=== PATIENT | female | born 1965 | race Caucasian/White ===

== ENCOUNTER → 2016-06-02 | Outpatient (REF) | payer OTHER ==
[~2016-06-02] MED LIST: /ROPI25TA PO; ACET250T2 PO; COLA50CA3 PO; DOCU10ELUD PO; FOLI1TAB86 PO; KEPP1000 PO; LIPI10TA PO; NORT25CA2 PO; NORT50CA PO; TOPA100T PO; TOPA200T PO; VENL50TA2 PO; VIMP200T PO; VITA200016 PO; VITA500T53 IM
[2016-06-02 13:51] LABS: PERCENT SATURATION 27.2 % (13.2-37.4)
== END ==
LOC: M LAB REF 12:42
PROVIDERS: ATTEND Internal Medicine Medical Oncology
DX: D50.9 Iron deficiency anemia, unspecified (principal)

== ENCOUNTER → 2016-07-28 | Outpatient (REF) | payer OTHER | LOC: M LAB REF 12:18 | PROVIDERS: ATTEND Internal Medicine Medical Oncology | DX: D50.9 Iron deficiency anemia, unspecified (principal) ==

== ENCOUNTER → 2017-10-07 | Outpatient (REF) | payer OTHER ==
[2017-10-07 15:30] LABS: FERRITIN 594 NG/ML (8-252); IRON (FE) 28 UG/DL (50-170); PERCENT SATURATION 11.5 % (13.2-45.0); TOTAL IRON BINDING CAPACITY 243 UG/DL (250-450)
== END ==
LOC: M LAB REF 13:30
DX: D50.9 Iron deficiency anemia, unspecified (principal)

== ENCOUNTER → 2017-11-04 | Outpatient (REF) | payer OTHER ==
[2017-11-04 18:26] LABS: POTASSIUM RANDOM URINE 12.1 MEQ/L
== END ==
LOC: M LAB REF 17:26
DX: E87.6 Hypokalemia (principal)

== ENCOUNTER → 2017-11-22 | Outpatient (REF) | payer OTHER ==
[2017-11-22 19:53] LABS: ALBUMIN 3.4 GM/DL (3.2-5.2); ANION GAP 5 MEQ/L (8-16); BLOOD UREA NITROGEN 19 MG/DL (7-18); CALCIUM LEVEL 8.8 MG/DL (8.5-10.1); CARBON DIOXIDE LEVEL 27 MEQ/L (21-32); CHLORIDE LEVEL 113 MEQ/L (98-107); CREATININE FOR GFR 1.02 MG/DL (0.55-1.30); GLOMERULAR FILTRATION RATE > 60.0 (>51); GLUCOSE, FASTING 85 MG/DL (70-100); PHOSPHORUS LEVEL 4.8 MG/DL (2.5-4.9); POTASSIUM SERUM 4.6 MEQ/L (3.5-5.1); SODIUM LEVEL 145 MEQ/L (136-145)
== END ==
LOC: M LAB REF 19:01
DX: R31.9 Hematuria, unspecified (principal)

== ENCOUNTER → 2018-01-04 | Outpatient (REF) | payer OTHER ==
[2018-01-04 14:39] LABS: FERRITIN 538 NG/ML (8-252); IRON (FE) 60 UG/DL (50-170); PERCENT SATURATION 22.6 % (13.2-45.0); TOTAL IRON BINDING CAPACITY 265 UG/DL (250-450)
== END ==
LOC: M LAB REF 14:00
DX: D50.9 Iron deficiency anemia, unspecified (principal)

== ENCOUNTER → 2018-01-20 | Outpatient (CLI) | payer OTHER ==
[~2018-01-20] MED LIST changes: -/ROPI25TA PO; -ACET250T2 PO; -COLA50CA3 PO; -DOCU10ELUD PO; -FOLI1TAB86 PO; +ISOVUE-370 76% 100ML VIAL (Q9967) As Ordered; -KEPP1000 PO; -LIPI10TA PO; -NORT25CA2 PO; -NORT50CA PO; -TOPA100T PO; -TOPA200T PO; -VENL50TA2 PO; -VIMP200T PO; -VITA200016 PO; -VITA500T53 IM
== END ==
LOC: M RAD 10:47
DX: N28.1 Cyst of kidney, acquired (principal)
CPT/HCPCS: Q9967

== ENCOUNTER → 2018-01-27 | Outpatient (REF) | payer OTHER ==
[2018-02-01 08:06] LABS: ALDOS/RENIN RATIO 4.6 (0.0-30.0); ALDOSTERONE 6.3 ng/dL (0.0-30.0); RENIN ACTIVITY 1.367 ng/mL/hr (0.167-5.380)
== END ==
LOC: M LAB REF 13:02
DX: E87.6 Hypokalemia (principal)
CPT/HCPCS: 84244

== ENCOUNTER → 2018-12-30 | Outpatient (REF) | payer OTHER ==
[~2018-12-30] MED LIST changes: +ACET250T2 PO; +ARMO200T3 PO; +ATOR40TA75 PO; +COLA50CA3 PO; +DOCU5LIQ PO; +FOLI1TAB11 PO; +FOLI1TAB86 PO; -ISOVUE-370 76% 100ML VIAL (Q9967) As Ordered; +KEPP1000 PO; +KEPP1TAB PO; +LEVOTAB10 PO; +LIPI10TA PO; +NORT25CA2 PO; +NORT50CA PO; +POTA10CA32 PO; +RANI-280 PO; +REQU1TAB14 PO; +SERT-138 PO; +TOPA100T PO; +TOPA200T PO; +TOPA200T7 PO; +TOPA50TA8 PO; +VENL50TA2 PO; +VIMP150T PO; +VIMP200T PO; +VITA-113 SL; +VITA200016 PO; +VITA50005 PO; +VITA500T53 IM; +ZOLO100T PO
== END ==
LOC: M LAB LCGH 15:22
PROVIDERS: ATTEND Physician Assistant
DX: D48.5 Neoplasm of uncertain behavior of skin (principal)

== ENCOUNTER 2019-04-15 22:05 | Inpatient (IN) | payer MEDICAID, OTHER ==
[~2019-04-15] VITALS: Ht 154.9 cm; Wt 72.7 kg
[~2019-04-15 22:05] MED LIST changes: +BACL10TA2 PO; +HYDR-3910 PO; +MAGN400T2 PO; +PRAM0.754 PO; +PROZ10CA7 PO; +TOPI200T7 PO; +[UNRECOGNIZED DRUG - CODE] PO
[2019-04-15] MEDS ORDERED: MOM 30ML SUSPENSION UDC PO PRN (23:30)
[2019-04-15] MEDS ORDERED: MAALOX 30 ML SUSP *UDC PO PRN (23:30)
[2019-04-15] MEDS ORDERED: LORazepam 2 MG TAB PO PRN (23:30)
[2019-04-16] MEDS ORDERED: HYDR-3363 PO (00:25)
[2019-04-16] MEDS ORDERED: B-12100011 SL (00:25)
[2019-04-16] MEDS ORDERED: PATIENT COMMENTS (00:28)
[2019-04-16 01:27] VITALS: BP 122/74
[2019-04-16] MEDS: THIAMINE 100 MG TAB PO SCH ×3 (01:28→21:46)
[2019-04-16] MEDS: ACETAMINOPHEN TAB 650MG DOSE (2X325MG) PO PRN ×2 (01:34→08:05)
[2019-04-16 06:09] VITALS: BP 102/54
[2019-04-16] MEDS: POTASSIUM CHLORIDE 10 MEQ SR TABLET PO SCH ×2 (08:04→20:46)
[2019-04-16] MEDS: PRAMIPEXOLE 0.25 MG TAB PO SCH ×2 (08:04→20:50)
[2019-04-16] MEDS: LACOSAMIDE 50 MG TAB (VIMPAT) PO SCH ×2 (08:05→20:49)
[2019-04-16] MEDS: levETIRAcetam 250MG TABLET (KEPPRA) PO SCH ×2 (08:05→20:51)
[2019-04-16] MEDS: FOLIC ACID 1 MG TAB PO SCH (08:05)
[2019-04-16] MEDS: BACLOFEN 10 MG TAB PO SCH (08:05)
[2019-04-16] MEDS: MULTIVITAMINS/MINERALS THERAP 1 TAB PO SCH (08:05)
[2019-04-16] MEDS: TOPIRAMATE (TopAMAX) 100 MG TAB PO SCH ×2 (08:06→20:41)
[2019-04-16] MEDS ORDERED: FOLIC ACID 1 MG TAB PO SCH (09:00)
[2019-04-16 12:12] VITALS: BP 107/65
[2019-04-16] MEDS ORDERED: ACETAMINOPHEN TAB 650MG DOSE (2X325MG) PO PRN (13:00)
--- NOTE | 2019-04-16 13:36 | REP ---
Clinical: fall with right shoulder pain . Technique: Internal rotation, external rotation, and Y view right shoulder . Findings: No acute fracture or dislocation. The acromioclavicular and glenohumeral joints are intact. No periarticular calcifications or degenerative changes are appreciated. Sub acromial space is normal. Surrounding soft tissues are unremarkable. Impression: Normal right shoulder radiographs. Electronically Signed by Logan Saleh MD 04/16/2019 01:27 P
--- NOTE | 2019-04-16 13:37 | REP ---
Clinical: Fall. Pain. Technique: Neutral and frog lateral views of the right hip. Findings: No acute fracture or dislocation. Skeletal structures, joint spaces, and surrounding soft tissues appear normal. Impression: No acute fracture or dislocation. Electronically Signed by Logan Saleh MD 04/16/2019 01:28 P
[2019-04-16] MEDS: CEPHALEXIN 500 MG CAP PO SCH ×2 (13:49→20:47)
[2019-04-16] MEDS: ACETAMINOPHEN 500 MG TAB PO PRN ×2 (13:50→20:54)
[2019-04-16 15:43] VITALS: BP 100/56
--- NOTE | 2019-04-16 17:30 | MHHPEPDOC ---
General Date Of Admission: Apr 15, 2019 Legal Status: 9.39 Chief Complaint " I stopped taking al my medications the right way, I was taking them every other day and that included my epilepsy medicine" History of Present Illness HISTORY OF THE PRESENT ILLNESS: Patient is a 53 -year-old , female, who, as per ED report: "Reason for Referral Pt transferred to [facility] ED for MHE on , pt expressed SI recently, has admittedly been depressed and abusing ETOH. Chief Complaint Pt is calm/flat/quiet, admits to making passive suicidal statement to family earlier today, had stated that she "should have finished it" years ago when she attempted suicide by overdose. Pt has epilepsy and narcolepsy as well as other medical issues, states she had a seizure yesterday and went to [facility] ED for tx, was d/c'd home and began drinking again, also admits to partial compliance with medications, states she takes "all of my medications every other day". Pt state she does this because "I don't like the way they make me feel". Pt lives alone and has her sister nearby for support, pt states she had another seizure earlier todayand tried to call eflow's but could not compete the call, they contacted pt.'s sister who responded to pt.'s home and then called 911. Per family, pill bottles were found scattered around the residence and pt appeared to be post-ictal from seizure. Pt is A&0x3, initially denies SI/HI, admits she has been feeling depressed, has missed 3 straight appointments at [facility]. PT admits to making suicidal statement to family however denies any plan/intent, reports one prior attempt by Tylenol ДМИТРИЙ in 2011, was admitted to ICU and then to [facility]. Pt reports daily ETOH, denies drug use, denies HI/AH/VH, admits to feeling depressed over medical issues and her son "not wanting to be in my life". Pt adds that she "did not have sex for 17 years" and then recently started "inviting men into my home", states "that's not like me", pt.'s family also expressed their concerns for pt.'s safety due to her ongoing ETOH, medical concerns/non-compliance as well as recent SI. PSA asked pt if she feels that she needs admission to hospital and after long pause stated "I don't know". Psychiatric Review of Systems Depression (2 or more weeks): depressed mood, insomnia/hypersomnia, difficulty concentrating, appetite changes, psychomotor changes (psychomotor retardation), suicidal thoughts Eladia (4 or more days of): denies Psychosis: denies PTSD: denies Anxiety: denies Anxiety/ 6 months or more of: difficulty concentrating, irritability, sleep disturbance Past Psychiatric History Previous Psychiatric Diagnosis: Depression, anxiety and panic attacks Previous Psychiatric Admissions: Admitted to [facility] in 2011 Suicide Attempts: Tylenol OD in 2012, admitted to [facility] ICU and tehn, tranferred to [facility] Psychiatric Follow-up: [facility] ( they closed her case because she didn't show up. she says it is because the Medicaid transportation didn't show up and she couldn't make it to her appts.) Psychiatric medications: Prozac, Trazodone. Past Medical History Medical Problems Epilepsy and narcolepsy. takes Keppra and Topamax for epilepsy and Modafinil for narcolepsy Head Injury: Yes (When she had swizures but she never had CT scnas done) Seizures: Yes Hospitalizations: Yes (She had 3 surgeries "intestinal surgeries in [place]". she tells me that her intestines were twisted.) Surgeries: Yes (Please read above) Family Medical/Psychiatric HX Medical Problems heart disease, cancer, diabetes, stroke Psychiatric Disorders: Yes (her mother, had a "nervous breakdown when she was in her 30's". She's passed now. ) Addiction: No Suicide Attemps/Completions: No Addiction History nicotine (1/2 pack/day), alcohol (4-5 glasses of wine daily) Social History Childhood: "We had a good childhood, I had 2 sisters and you know, it was normal". Her mother was hairdresser and worked at home. her father came back home at night from work. They had a close relationship. She says elementary school was OK and in she was overweight and she only had one friend in school, some of the boys would pick on her, it was hard for her to make friends being overweight. Abuse/Trauma: She was picked on while in for being overweight but she didn't think of it like that Current Living Situation: Lives by herself. Education: Finished Employment: She has not worked since age 37. She is on SSI. Social Support: her 2 sisters, years ago she had to move in with her parents 15 years ago because she was having about 15 seizures/day. Her parents are . She says her sisters take her out once/month because they are busy with their lives. Legal: Denies Marital: , she has a 30 year old son. she doesn't see him very often. she says he sister thinks that she was terrible to him but she says she doesn't think " I was that rotten to him" Mental Status Examination General Appearance: well groomed, ds/not appear stated age (appears to be older), hospital scubs/clothing Build: thin Demeanor: average Eye Contact: average Activity: slowed, anxious Behavior: cooperative Speech: clear, spontaneous, slow, low in volume Mood: depressed, anxious Affect: constricted, appropriate, congruent, anxious Thought Process: logical/linear, depressed, slow Thought Content (Delusions): denies SI, HI, AVH Thought Content (Other): none reported Thought Content (Aggressive): none reported Perception (Hallucinations): none reported Perception (Other): none reported Cognition (Impairment of): none reported Cognition(Intelligence Est.): average Oriented: Awake, Alert, Oriented times three Insight: fair Judgment: Poor Psychosis: Denies Diagnoses 1. Unspecified depressive disorder 2. ETOH use disorder 3. R/O substance induced depression 4. Epilepsy 5. Narcolepsy A-FIB/CHADSVASC A-FIB History Current/History of A-Fib/PAF?: No Current PO Anticoag Therapy: No Age/Risk Factor Scoring CHADSVASC: CHADSVASC Response (Comments) Value Age Risk Factor Age < 65 years old 0 Gender Risk Factor Female 1 Hx of CHF No 0 Hx of HTN No 0 Hx of Stroke/TIA/or VTE No 0 Hx of Diabetes No 0 Hx of Vascular Disease No 0 Total 1 Treatment Treatment ordered: NONE Reason Anticoagulant not given: Not indicated/[id number] Assessment The patient seems to have some confabulation at times, her thought process is slow, sometimes she seems to have some thought blocking that could be secondary to her anti seizure medication ( Topamax and Keppra). This health technical writer elained that Keppra can be depressogenic for her to have a conversation with her Neurologist and assess the possibility of having her on another medication. Initial Treatment Plan 1. Patient was admitted on a [9.39] status. 2. Complete history was obtained. 3. With patients permission, family will be contacted and database will be expanded. 4. Patients medication regimen will be reviewed and changed accordingly. 5. Patient will be provided with protected environment. 6. Patient will be treated with individual, group, and milieu therapies. 7. Patient will receive supportive psych-education. 8. Discharge planning will commence immediately. 9. Outpatient follow-up treatment will be strongly recommended. 10. The initial treatment plan will focus initially on: * Depression. * Anxiety * Risk for suicide. * Substance abuse (nicotine and alcohol) ESTIMATED LENGTH OF STAY: 5-7 DAYS. TIME SPENT COUNSELING AND COORDINATING INITIAL CARE: 60 minutes. Vital Signs Vital Signs Date Time Temp Pulse Resp B/P (MAP) Pulse Ox O2 Delivery O2 Flow Rate FiO2 04/16/19 15:43 99.0 71 16 100/56 (71) 04/16/19 06:09 Room Air 04/16/19 00:23 94 Medications Scheduled Armodafinil (Armodafinil) 200 Mg Tab, 200 MG PO QAM, (Reported) Atorvastatin Calcium (Atorvastatin Calcium) 40 Mg Tab, 40 MG PO QPM, (Reported) Baclofen (Baclofen) 10 Mg Tablet, 10 MG PO DAILY, (Reported) Cyanocobalamin (Vitamin B-12) (Vitamin B-12) 1,000 Mcg Tab.subl, 1,000 MCG SL DAILY, (Reported) Ergocalciferol (Vitamin D2) (Vitamin D2) 50,000 Unit Cap, 50,000 UNIT PO QWEEK, (Reported) Wednesday Fluoxetine HCl (Prozac) 10 Mg Capsule, 20 MG PO QHS, (Reported) Folic Acid (Folic Acid) 1 Mg Tab, 1 MG PO QAM, (Reported) Hydroxyzine HCl (Hydroxyzine HCl) 25 Mg Tablet, 25 MG PO QHS, (Reported) MAY TAKE TWO Lacosamide (Vimpat) 200 Mg Tablet, 200 MG PO BID, (Reported) Levetiracetam (Keppra) 500 Mg Tab, 1,000 MG PO BID, (Reported) Levocetirizine Dihydrochloride (Levocetirizine Dihydrochloride) 5 Mg Tab, 5 MG PO QPM, (Reported) Magnesium Oxide (Magnesium Oxide) 400 Mg Tablet, 400 MG PO 3XW, (Reported) Yqudtbfe20/Folic AC/Nadh/Coq10 (Xyzbac Tablet) 1 Each Tablet, 1 TAB PO DAILY, (Reported) Potassium Chloride (Potassium Chloride) 10 Meq Cap, 20 MEQ PO BID, (Reported) Pramipexole Di-HCl (Pramipexole Dihydrochloride) 0.75 Mg Tablet, 0.75 MG PO BID, (Reported) Sertraline HCl (Sertraline HCl) 100 Mg Tab, 100 MG PO QPM, (Reported) Topiramate (Topiramate) 200 Mg Tablet, 200 MG PO BID, (Reported) Topiramate (Topamax) 50 Mg Tablet, 50 MG PO QHS, (Reported) TAKES WITH 200MG TABLET FOR TOTAL OF 250MG AT HS Miscellaneous Medications [Patient Comments] , (Reported) PATIENT STATES SHE TAKES HER MEDICATIONS EVERY OTHER DAY Allergies Coded Allergies: sumatriptan (Verified Allergy, Severe, 09/13/18) Quinolones (Verified Adverse Reaction, Severe, Seizure, 04/15/19) moxifloxacin (Verified Adverse Reaction, Severe, lowers seizure threshold, 04/15/19) SAJAN HENRY MD Apr 16, 2019 17:30
--- NOTE | 2019-04-16 18:57 | HPEPDOC ---
General Date of Admission Apr 15, 2019 at 23:24 Date of Service: Apr 16, 2019 Attending Physician: HUMBERTO BANDA MD Chief Complaint The patient is a 53-year-old female admitted with a reason for visit of Unspecified Depressive Disorder. Source: Patient Exam Limitations: No limitations Timing/Duration: Other Severity: Moderate Associated Symptoms: Other (Depressed mood. Pain in R shoulder and R hip after recent fall during seizure) History of Present Illness 53 yo W with a history of epilepsy and narcolepsy with a history intermittent medication compliance with occasional seizure, recent excessive alcohol use, depression, prior suicide attempt in 2011 with tylenol requiring ICU stay, familial strife and estranged from her son who was brought into the ED after expressing a desire to end her life to family. She was brought into an outside hospital where she had labs done with a +UA per nursing verbal report after I had already examined her, that she grew GNRs with pending speciation and sensitivities. When I met Ms. Francis she reported a recent traumatic fall during her last seizure that was few days ago and has R shoulder and R hip pain. She otherwise denied any fever, chills, chest pain, palpitations, headache, abdominal pain or diarrhea. Home Medications Scheduled Armodafinil (Armodafinil) 200 Mg Tab, 200 MG PO QAM, (Reported) Atorvastatin Calcium (Atorvastatin Calcium) 40 Mg Tab, 40 MG PO QPM, (Reported) Baclofen (Baclofen) 10 Mg Tablet, 10 MG PO DAILY, (Reported) Cyanocobalamin (Vitamin B-12) (Vitamin B-12) 1,000 Mcg Tab.subl, 1,000 MCG SL DAILY, (Reported) Ergocalciferol (Vitamin D2) (Vitamin D2) 50,000 Unit Cap, 50,000 UNIT PO QWEEK, (Reported) WEDNESDAY AM Fluoxetine HCl (Prozac) 10 Mg Capsule, 20 MG PO QHS, (Reported) Folic Acid (Folic Acid) 1 Mg Tab, 1 MG PO QAM, (Reported) Hydroxyzine HCl (Hydroxyzine HCl) 25 Mg Tablet, 25 MG PO QHS, (Reported) MAY TAKE TWO Lacosamide (Vimpat) 200 Mg Tablet, 200 MG PO BID, (Reported) Levetiracetam (Keppra) 500 Mg Tab, 1,000 MG PO BID, (Reported) Levocetirizine Dihydrochloride (Levocetirizine Dihydrochloride) 5 Mg Tab, 5 MG PO QPM, (Reported) Magnesium Oxide (Magnesium Oxide) 400 Mg Tablet, 400 MG PO 3XW, (Reported) Kwraqxoh74/Folic AC/Nadh/Coq10 (Xyzbac Tablet) 1 Each Tablet, 1 TAB PO DAILY, (Reported) Potassium Chloride (Potassium Chloride) 10 Meq Cap, 20 MEQ PO BID, (Reported) Pramipexole Di-HCl (Pramipexole Dihydrochloride) 0.75 Mg Tablet, 0.75 MG PO BID, (Reported) Sertraline HCl (Sertraline HCl) 100 Mg Tab, 100 MG PO QPM, (Reported) Topiramate (Topiramate) 200 Mg Tablet, 200 MG PO BID, (Reported) Topiramate (Topamax) 50 Mg Tablet, 50 MG PO QHS, (Reported) TAKES WITH 200MG TABLET FOR TOTAL OF 250MG AT HS Miscellaneous Medications [Patient Comments] , (Reported) PATIENT STATES SHE TAKES HER MEDICATIONS EVERY OTHER DAY Allergies Coded Allergies: sumatriptan (Verified Allergy, Severe, 09/13/18) Quinolones (Verified Adverse Reaction, Severe, Seizure, 04/15/19) moxifloxacin (Verified Adverse Reaction, Severe, lowers seizure threshold, 04/15/19) Past Medical History Medical History Epilepsy Narcolepsy Family History Significant Family History: No pertinent family hx Social History * Smoker: Denies Alcohol: heavy Drugs: denies Recent Travel/Sick Contacts: Denies: Recent travel, Recent sick contacts Psychosocial History: Decreased mood, Depression, Emotional problems Lives alone Has one son whom she is estranged to now and is devastated by the fallout such that she tries to call him without much luck and gets very depressed when she thinks about it and it precipitates her drinking and medication non-compliance A-FIB/CHADSVASC A-FIB History Current/History of A-Fib/PAF?: No Current PO Anticoag Therapy: No Age/Risk Factor Scoring CHADSVASC: CHADSVASC Response (Comments) Value Age Risk Factor Age < 65 years old 0 Gender Risk Factor Female 1 Hx of CHF No 0 Hx of HTN No 0 Hx of Stroke/TIA/or VTE No 0 Hx of Diabetes No 0 Hx of Vascular Disease No 0 Total 1 Treatment Treatment ordered: NONE Reason Anticoagulant not given: Not indicated/[id number] Review of Systems Constitutional: Denies: Chills, Fever, Night Sweats Eyes: Denies: Pain, Vision change ENT: Denies: Head Aches, Ear Pain, Dysphagia Skin: Denies: Rash, Lesions, Breakdown Pulmonary: Denies: Dyspnea, Cough Cardiovascular: Denies: Chest Pain, Palpitations, Orthopnea, Paroxysmal Noc. Dyspnea, Lt Headedness Gastrointestinal: Denies: Nausea, Vomiting, Abdominal Pain, Diarrhea Genitourinary: Denies: Dysuria, Frequency, Incontinence, Retention Hematologic: Denies: Bruising, Bleeding Excessively Endocrine: Denies: Polydipsia, Polyphagia, Polyuria, Heat Intolerance, Cold Intolerance, Other Endocrine Sx Musculoskeletal: Reports: Shoulder Pain (right sided), Leg Pain (right hip pain) Neurological: Denies: Weakness, Numbness, Change in speech, Confusion Psych: Reports: Depression, Thoughts of Self Harm Physical Examination General Exam: Positive: Alert, No Acute Distress Eye Exam: Positive: PERRLA, Conjunctiva & lids normal, EOMI; Negative: Sclera icteric ENT Exam: Positive: Atraumatic, Mucous membr. moist/pink, Pharynx Normal Neck Exam: Positive: Supple; Negative: JVD, thyromegaly Chest Exam: Positive: Clear to auscultation, Normal air movement Heart Exam: Positive: Rate Normal, Regular Rhythm, Normal S1, Normal S2; Negative: Murmurs, Rubs Abdomen Exam: Positive: Normal bowel sounds, Soft; Negative: Tenderness, Hepatospenomegaly Extremity Exam: Positive: Normal pulses; Negative: Clubbing, Cyanosis, Edema Skin Exam: Positive: Nl turgor and temperature; Negative: Breakdown, Lesion Neuro Exam: Positive: Normal Gait, Normal Speech, Strength at 5/5 X4 ext, Sensa tion Intact, Cranial Nerves 3-12 NL, Reflexes 2+ Psych Exam: Positive: Mood NL, Memory Intact, Oriented x 3 Other physical findings right hip and right shoulder tenderness to palpation, with full range of motion. Vital Signs Vital Signs Date Time Temp Pulse Resp B/P (MAP) Pulse Ox O2 Delivery O2 Flow Rate FiO2 04/16/19 15:43 99.0 71 16 100/56 (71) 04/16/19 06:09 Room Air 04/16/19 00:23 94 Assessment/Plan 53 yo woman with a history of narcolepsy and epilepsy with a history of medication non compliance, depression, recent alcohol use disorder and familial distress with her estranged son who was brought into the hospital for endorsing suicidal thoughts to family that brought her to the hospital. In addition to suicidal ideation and depression, she was found to have a GNR UTI and has MSK pain from her recent fall without fractures to her right hip and shoulder. I will empirically start her on keflex and will follow up on her speciation and sensitivities to optimize her antibiotics for the UTI, and will increase her tylenol from 650Q6H to 1gQ6H PRN for the shoulder and hip contusion pain. The rest of her plan is per the recommendation of the psychiatry team that have already started her pertinent medications. I will continue to follow he to follow up her urine culture sensitivities. Plan: UTI: starte kelfex 500 BID empirically for GNR UTI and follow up her speciation and sensitivities R hip and R shoulder pain: Obtained plain films that were negative for fractures. Increased tylenol to 1gQ6H PRN for contusion pain. Epilepsy: her medications were restored by psychiatry, agree with plan narcolepsy: Changed her provigil to QAM instead of QHS with pharmacy Chronic meds: have been resumed Psych: per the mental health team recommendations Plan / VTE VTE Prophylaxis Ordered?: No VTE Exclusion Mechanical Proph: Low Risk for VTE VTE Exclusion Pharmacological: At Low Risk for VTE HUMBERTO BANDA MD Apr 16, 2019 18:56
[2019-04-16] MEDS: TOPIRAMATE (TopAMAX) 25 MG TAB PO SCH (20:45)
[2019-04-16] MEDS: FLUoxetine 20 MG CAP PO SCH (20:47)
[2019-04-16] MEDS: ATORVASTATIN 20 MG TAB PO SCH (20:49)
[2019-04-16] MEDS: hydrOXYzine 25 MG TAB PO SCH (20:49)
[2019-04-16] MEDS: CETIRIZINE (ZyrTEC) 10 MG TAB PO SCH (20:49)
[2019-04-16] MEDS ORDERED: SERTRALINE 100 MG TAB PO SCH (21:00)
[2019-04-17] MEDS: traZODone 50 MG TAB PO PRN ×2 (02:13→20:15)
[2019-04-17] MEDS: ACETAMINOPHEN 500 MG TAB PO PRN ×3 (05:05→20:13)
[2019-04-17 06:31] VITALS: BP 110/68
[2019-04-17] MEDS: FOLIC ACID 1 MG TAB PO SCH (08:34)
[2019-04-17] MEDS: THIAMINE 100 MG TAB PO SCH ×2 (08:34→20:15)
[2019-04-17] MEDS: POTASSIUM CHLORIDE 10 MEQ SR TABLET PO SCH ×2 (08:34→20:15)
[2019-04-17] MEDS: MULTIVITAMINS/MINERALS THERAP 1 TAB PO SCH (08:34)
[2019-04-17] MEDS: PRAMIPEXOLE 0.25 MG TAB PO SCH ×2 (08:35→20:12)
[2019-04-17] MEDS: TOPIRAMATE (TopAMAX) 100 MG TAB PO SCH ×2 (08:35→20:16)
[2019-04-17] MEDS: MODAFINIL 100 MG TABLET PO SCH (08:35)
[2019-04-17] MEDS: BACLOFEN 10 MG TAB PO SCH (08:35)
[2019-04-17] MEDS: CEPHALEXIN 500 MG CAP PO SCH ×2 (08:35→20:15)
[2019-04-17] MEDS: levETIRAcetam 250MG TABLET (KEPPRA) PO SCH ×2 (08:35→20:13)
[2019-04-17] MEDS: LACOSAMIDE 50 MG TAB (VIMPAT) PO SCH ×2 (08:35→20:14)
[2019-04-17] MEDS ORDERED: MAGNESIUM OXIDE 400 MG TAB (MAG-OX) PO SCH (09:00)
[2019-04-17] MEDS ORDERED: VITAMIN D 50,000 UNITS CAPSULE (ERGOCALCIFEROL 1.25MG) PO SCH (09:00)
--- NOTE | 2019-04-17 10:43 | MHIPNPDOC ---
[facility] Progress Note Progress Note Inpatient Progress Note Alize Uribe MRN: N/A Date of : N/A Date of Service: 04/17/2019 History of Present Illness 53-year-old woman with a history of depression and reported alcohol problems, presents after reportedly making passive suicidal statements in the context of recently not taking her seizure medications. Interval History The patient is met with today. She reports she is not suicidal or homicidal. She has been restarted on her home medications. She reports that when asked about if she would like to stay longer, she is a bit ambivalent reporting that she has not been on her medications. The patient has been doing well per staff report amenable and friendly with no major behavioral problems. The patient reports that her initial depressed mood has begun to resolve. Review Of Systems The patient denies any side effects from her current medications and reports that her sleep and ability to attend her needs has improved. Psychotherapy None on this visit. Vital Signs Reviewed. Mental Status Examination General: Well dressed with good hygiene Speech: Spontaneous and fluid Thought processes: Linear and logical MSK: Smooth and coordinated gait, no signs of tremors or involuntary orofacial movements Thought content: Future orientated Abstract reasoning, and computation: Intact Description of associations: Intact Description of abnormal or psychotic thoughts: Denies any suicidal or homicidal ideation. Denies any auditory or visual hallucinations. Does not appear to be responding to internal stimuli. Does not appear to be endorsing any bizarre or paranoid ideation. Judgment: fair Insight: fair Orientation: Alert and orientated 3 Cognition: Grossly normal Recent and remote memory: Intact Attention span and concentration: Intact Fund of knowledge: Adequate Mood: "okay" Affect: Mildly dysthymic with a constricted range. Diagnoses Unspecified depressive disorder. Alcohol use disorder. Assessment and Plan Unspecified depressive disorder: Continue home medications. Disposition Patient will be converted to voluntary status and will be potentially discharged tomorrow. Time Spent 15 minutes. Wednesday Vital Signs Vital Signs Date Time Temp Pulse Resp B/P (MAP) Pulse Ox O2 Delivery O2 Flow Rate FiO2 04/17/19 06:31 98.3 82 16 110/68 (82) Room Air 04/16/19 00:23 94 Current Medications Current Medications Medications (Trade) Dose Ordered Sig/Corrie Route PRN Reason Start Time Stop Time Status Last Admin Dose Admin Acetaminophen (Tylenol Tab) 650 mg Q6HP PRN PO HEADACHE or DISCOMFORT 04/15/19 23:30 04/16/19 12:50 DC 04/16/19 08:05 Acetaminophen (Tylenol Tab) 1,000 mg Q6HP PRN PO HEADACHE or DISCOMFORT 04/16/19 13:00 04/16/19 13:05 DC Acetaminophen (Tylenol Tab) 1,000 mg Q6HP PRN PO HEADACHE or DISCOMFORT 04/16/19 13:05 04/17/19 05:05 Al Hydrox/Mg Hydrox/Simethicone (Mylanta) 30 ml Q4HP PRN PO HEARTBURN/INDIGESTION 04/15/19 23:30 Atorvastatin Calcium (Lipitor) 40 mg QPM PO 04/16/19 21:00 04/16/19 20:49 Baclofen (Lioresal) 10 mg DAILY PO 04/16/19 09:00 04/17/19 08:35 Cephalexin Monohydrate (Keflex) 500 mg BID PO 04/16/19 13:00 04/17/19 08:35 Cetirizine HCl (ZyrTEC) 10 mg QHS PO 04/16/19 21:00 04/16/19 20:49 Fluoxetine HCl (PROzac) 20 mg QHS PO 04/16/19 21:00 04/16/19 20:47 Folic Acid (Folic Acid) 1 mg DAILY PO 04/16/19 09:00 04/17/19 08:34 Folic Acid (Folic Acid) 1 mg QAM PO 04/16/19 09:00 UNV Home Med (Med Rec Complete!) ASDIRECTED XX 04/16/19 00:30 04/16/19 00:32 DC Hydroxyzine HCl (Atarax) 25 mg QHS PO 04/16/19 21:00 04/16/19 20:49 Lacosamide (Vimpat) 200 mg BID PO 04/16/19 09:00 04/17/19 08:35 Levetiracetam (Keppra) 1,000 mg BID PO 04/16/19 09:00 04/17/19 08:35 Lorazepam (Ativan) 2 mg ASDIRECTED PRN PO SEE PROTOCOL 04/15/19 23:30 Magnesium Hydroxide (Milk Of Magnesia) 30 ml DAILYPRN PRN PO CONSTIPATION 04/15/19 23:30 Magnesium Oxide (Mag-Ox) 400 mg MoWeFr@0900 PO 04/17/19 09:00 04/17/19 08:34 Miscellaneous (Unresolved Patient Own Med Order) SEE LABEL COMMENTS DAILY XX 04/16/19 09:00 04/16/19 13:38 DC Modafinil (Provigil) 200 mg QAM PO 04/17/19 09:00 04/17/19 08:35 Multivitamins (Theragram-M) 1 tab DAILY PO 04/16/19 09:00 04/17/19 08:34 Potassium Chloride (Micro-K Extencaps) 20 meq BID PO 04/16/19 09:00 04/17/19 08:34 Pramipexole Dihydrochloride (Mirapex) 0.75 mg BID PO 04/16/19 09:00 04/17/19 08:35 Sertraline HCl (Zoloft) 100 mg QPM PO 04/16/19 21:00 Cancel Thiamine HCl (Thiamine HCl) 100 mg BID PO 04/15/19 21:00 04/19/19 20:59 04/17/19 08:34 Topiramate (TopAMAX) 50 mg QHS PO 04/16/19 21:00 04/16/19 20:45 Topiramate (TopAMAX) 200 mg BID PO 04/16/19 09:00 04/17/19 08:35 Trazodone HCl (Desyrel) 50 mg QHSP PRN PO INSOMNIA 04/15/19 23:30 04/17/19 02:13 Vitamin D (Drisdol) 50,000 units Q7D@0900 PO 04/17/19 09:00 04/17/19 08:35 Allergies Coded Allergies: sumatriptan (Verified Allergy, Severe, 09/13/18) Quinolones (Verified Adverse Reaction, Severe, Seizure, 04/15/19) moxifloxacin (Verified Adverse Reaction, Severe, lowers seizure threshold, 04/15/19) BEVERLY RIVERS DO Apr 17, 2019 10:43
[2019-04-17 12:00] VITALS: BP 105/62
[2019-04-17 17:48] VITALS: BP 92/49
--- NOTE | 2019-04-17 20:06 | IPNPDOC ---
Text Note Date of Service The patient was seen on 04/17/19. NOTE I saw Ms. Meraz today to discuss her recent imaging after her fall and the ongoing pain, as well as to complete the investigation into her ongoing UTI. Subjective: She felt well today with the complaints being her right hip ongoing pain. SHe otherwise denied any dysuria at this time, or fever, chills or suprapubic pain Objective: General: Middle aged woman who appears older than her stated age in no distress Psych: Pleasant, feels more hopeful today, reports that things are going well. Neuro: AOx3, normal gait, nonfocal examination Pulm: CTAB Cardiac: RRR, no note murmurs Ext: no LE edema, WWP LUIGI Has full range of motion at right hip and shoulder but reports pain. Skin: Bruising is present at right hip without a firm hematoma. Data: Called back the [facility] microbiology lab that confirmed that her urine grew Klebsiella that was pansensitive except to amoxicillin and sensitive to the p [place] cephalosporins Imaging: Right hip and shoulder xrays had no evidence of fractures Assessment: Doing well with resolution of dysuria and ongoing contusion pain managed by tylenol. Manageable per the patient. Plan: UTI: will take keflex for 5 days. Stop date defined. Thank you for the consult. I will sign off at this time. VS,Fishbone, I+O VS, Fishbone, I+O Vital Signs Date Time Temp Pulse Resp B/P (MAP) Pulse Ox O2 Delivery O2 Flow Rate FiO2 04/17/19 17:48 98.0 63 16 92/49 (63) 04/17/19 06:31 Room Air 04/16/19 00:23 94 HUMBERTO BANDA MD Apr 17, 2019 20:06
[2019-04-17] MEDS: ATORVASTATIN 20 MG TAB PO SCH (20:12)
[2019-04-17] MEDS: FLUoxetine 20 MG CAP PO SCH (20:13)
[2019-04-17] MEDS: hydrOXYzine 25 MG TAB PO SCH (20:15)
[2019-04-17] MEDS: CETIRIZINE (ZyrTEC) 10 MG TAB PO SCH (20:15)
[2019-04-17] MEDS: TOPIRAMATE (TopAMAX) 25 MG TAB PO SCH (20:16)
[2019-04-18] MEDS: ACETAMINOPHEN 500 MG TAB PO PRN ×2 (05:57→12:09)
[2019-04-18 06:46] VITALS: BP 118/71
[2019-04-18] MEDS: LACOSAMIDE 50 MG TAB (VIMPAT) PO SCH (08:23)
[2019-04-18] MEDS: CEPHALEXIN 500 MG CAP PO SCH (08:23)
[2019-04-18] MEDS: MODAFINIL 100 MG TABLET PO SCH (08:23)
[2019-04-18] MEDS: TOPIRAMATE (TopAMAX) 100 MG TAB PO SCH (08:24)
[2019-04-18] MEDS: MULTIVITAMINS/MINERALS THERAP 1 TAB PO SCH (08:24)
[2019-04-18] MEDS: levETIRAcetam 250MG TABLET (KEPPRA) PO SCH (08:25)
[2019-04-18] MEDS: FOLIC ACID 1 MG TAB PO SCH (08:25)
[2019-04-18] MEDS: BACLOFEN 10 MG TAB PO SCH (08:26)
[2019-04-18] MEDS: PRAMIPEXOLE 0.25 MG TAB PO SCH (08:26)
[2019-04-18] MEDS: THIAMINE 100 MG TAB PO SCH (08:26)
[2019-04-18] MEDS: POTASSIUM CHLORIDE 10 MEQ SR TABLET PO SCH (08:27)
--- NOTE | 2019-04-18 08:59 | MHDSPDOC ---
[facility] Discharge Summary Discharge Summary DATE OF ADMISSION: Apr 15, 2019 at 23:24 DATE OF DISCHARGE: 04/18/19 Discharge Alize Uribe MRN: [id number] Date of : N/A Date of Service: 04/18/2019 Diagnoses Unspecified depressive disorder. Alcohol use disorder. History of Present Illness 53-year-old woman with a history of depression and reported alcohol problems, presents after reportedly making passive suicidal statements in the context of recently not taking her seizure medications. Consultants Involved Hospitalist/PCP screening Treatment and Progress On The Unit The patient was admitted to the inpatient unit, restarted on her home medications and observed. She was placed on the CIWA protocol with no major scoring. She did well in the unit and subsequently after observation, she no longer met involuntary criteria as she had been denying suicidal or homicidal ideation through the entirety of her stay. She had only notably had some mild passive suicidal thoughts better construed as hopelessness than overt suicidality prior to her presentation to [facility]'s ER and was admitted out of an abundance of caution. When she was restarted on her home medications primarily of Prozac and her antiepileptics as well as modafinil, she did well without any major signs of mental illness. She requested to stay another day on a voluntary status in order to see if her medications would continue to be helpful. On the day of discharge, the patient did not meet involuntary criteria. She denied any suicidal or homicidal ideation. She did not appear overtly impaired by a mental health process, was cooperative with the discharge planners, and had no major behavioral problems and was in sufficient behavioral control. She declined further voluntary admission and was discharged in good tasneem. Discharge Assessment 53-year-old woman with a history of depression and report alcohol problems, who reportedly made passive suicidal statements after becoming intoxicated. It appears that she has poor compliance with her outpatient medications and poor compliance with outpatient treatment which likely feeds into a cycle of depression and alcoholism. Mental Status Examination General: Well dressed with good hygiene Speech: Spontaneous and fluid Thought processes: Linear and logical MSK: Smooth and coordinated gait, no signs of tremors or involuntary orofacial movements Thought content: Future orientated Abstract reasoning, and computation: Intact Description of associations: Intact Description of abnormal or psychotic thoughts: Denies any suicidal or homicidal ideation. Denies any auditory or visual hallucinations. Does not appear to be responding to internal stimuli. Does not appear to be endorsing any bizarre or paranoid ideation. Judgment: fair Insight: fair Orientation: Alert and orientated 3 Cognition: Grossly normal Recent and remote memory: Intact Attention span and concentration: Intact Fund of knowledge: Adequate Mood: "okay" Affect: Euthymic with a full range Follow Up The social work team worked during the predischarge meeting in order to evaluate for further issues of lethality address them fully before discharge. They worked on safety planning with the patient's family members in order to ensure that the patient will have a safe and effective discharge. Time Spent The amount of time spent in the coordination of care for this patient was a pproximately 60 minutes. Wednesday Vital Signs/I&Os Vital Signs Date Time Temp Pulse Resp B/P (MAP) Pulse Ox O2 Delivery O2 Flow Rate FiO2 04/18/19 06:46 97.7 91 16 118/71 (87) 04/17/19 06:31 Room Air 04/16/19 00:23 94 Medications Scheduled Armodafinil (Armodafinil) 200 Mg Tab, 200 MG PO QAM, (Reported) Atorvastatin Calcium (Atorvastatin Calcium) 40 Mg Tab, 40 MG PO QPM, (Reported) Baclofen (Baclofen) 10 Mg Tablet, 10 MG PO DAILY, (Reported) Cyanocobalamin (Vitamin B-12) (Vitamin B-12) 1,000 Mcg Tab.subl, 1,000 MCG SL DAILY, (Reported) Ergocalciferol (Vitamin D2) (Vitamin D2) 50,000 Unit Cap, 50,000 UNIT PO QWEEK, (Reported) Wednesday Fluoxetine HCl (Prozac) 10 Mg Capsule, 20 MG PO QHS, (Reported) Folic Acid (Folic Acid) 1 Mg Tab, 1 MG PO QAM, (Reported) Hydroxyzine HCl (Hydroxyzine HCl) 25 Mg Tablet, 25 MG PO QHS, (Reported) MAY TAKE TWO Lacosamide (Vimpat) 200 Mg Tablet, 200 MG PO BID for 30 Days, (Reported) Levetiracetam (Keppra) 500 Mg Tab, 1,000 MG PO BID, (Reported) Levocetirizine Dihydrochloride (Levocetirizine Dihydrochloride) 5 Mg Tab, 5 MG PO QPM, (Reported) Magnesium Oxide (Magnesium Oxide) 400 Mg Tablet, 400 MG PO 3XW, (Reported) [id number]/Folic AC/Nadh/Coq10 (Xyzbac Tablet) 1 Each Tablet, 1 TAB PO DAILY, (Reported) Potassium Chloride (Potassium Chloride) 10 Meq Cap, 20 MEQ PO BID, (Reported) Pramipexole Di-HCl (Pramipexole Dihydrochloride) 0.75 Mg Tablet, 0.75 MG PO BID, (Reported) Sertraline HCl (Sertraline HCl) 100 Mg Tab, 100 MG PO QPM, (Reported) Topiramate (Topiramate) 200 Mg Tablet, 200 MG PO BID, (Reported) Topiramate (Topamax) 50 Mg Tablet, 50 MG PO QHS, (Reported) TAKES WITH 200MG TABLET FOR TOTAL OF 250MG AT HS Miscellaneous Medications [Patient Comments] , (Reported) PATIENT STATES SHE TAKES HER MEDICATIONS EVERY OTHER DAY Allergies Coded Allergies: sumatriptan (Verified Allergy, Severe, 09/13/18) Quinolones (Verified Adverse Reaction, Severe, Seizure, 04/15/19) moxifloxacin (Verified Adverse Reaction, Severe, lowers seizure threshold, 04/15/19) BEVERLY RIVERS DO Apr 18, 2019 08:59
== END 2019-04-18 12:55 | disposition home or self-care (01) | DRG 754 ==
LOC: M ED 22:05 → M ED INP 23:24 → M PSY 04-16 00:35
PROVIDERS: ADMIT Psychiatry & Neurology Addiction Medicine; ATTEND Psychiatry & Neurology Addiction Medicine
DX: F32.9 Major depressive disorder, single episode, unspecified (principal); F10.20 Alcohol dependence, uncomplicated; G40.909 Epilepsy, unspecified, not intractable, without status epilepticus; G47.419 Narcolepsy without cataplexy; Z91.14 Patient's other noncompliance with medication regimen; Z91.5 Personal history of self-harm; F17.210 Nicotine dependence, cigarettes, uncomplicated; Z79.899 Other long term (current) drug therapy; Z88.1 Allergy status to other antibiotic agents; Z88.8 Allergy status to other drugs, medicaments and biological substances; Z63.8 Other specified problems related to primary support group; M25.551 Pain in right hip; M25.511 Pain in right shoulder; N39.0 Urinary tract infection, site not specified; B96.1 Klebsiella pneumoniae [K. pneumoniae] as the cause of diseases classified elsewhere; Z91.19 Patient's noncompliance with other medical treatment and regimen

== ENCOUNTER → 2019-07-17 | Outpatient (REF) | payer MEDICAID ==
[~2019-07-17] MED LIST changes: +B-12100011 SL; +HYDR-3363 PO; +KEFL500C17 PO; +PATIENT COMMENTS
== END ==
LOC: M LAB REF 17:03
PROVIDERS: ATTEND Internal Medicine Nephrology
DX: N39.0 Urinary tract infection, site not specified (principal)

== ENCOUNTER → 2020-11-28 | Outpatient (REF) | payer OTHER ==
[~2020-11-28] MED LIST changes: +VITATAB64 PO
== END ==
LOC: M LAB REF 17:13
PROVIDERS: ATTEND Internal Medicine Nephrology
DX: E87.6 Hypokalemia (principal)

== ENCOUNTER → 2021-02-24 | Outpatient (REF) | payer OTHER | LOC: M LAB REF 17:07 | PROVIDERS: ATTEND Internal Medicine Nephrology | DX: E87.6 Hypokalemia (principal) ==

== ENCOUNTER 2021-08-11 17:29 | Inpatient (IN) | payer OTHER ==
[~2021-08-11] VITALS: Ht 157.5 cm; Wt 37.0 kg
[2021-08-11] MEDS ORDERED: NYST50SS (18:04)
[2021-08-11] MEDS ORDERED: FAMO20TA5 (18:04)
[2021-08-11] MEDS ORDERED: POTA1TAB14 (18:04)
[2021-08-11] MEDS ORDERED: ATOR80TA59 (18:04)
[2021-08-11] MEDS ORDERED: PANT40TA29 (18:04)
[2021-08-11] MEDS ORDERED: FURO20TA2 (18:04)
[2021-08-11] MEDS ORDERED: NALT50TA4 (18:04)
[2021-08-11] MEDS ORDERED: PRED20TA (18:04)
[2021-08-11] MEDS ORDERED: PRED10TA2 (18:04)
[2021-08-11 21:06] LABS: BASO % 0.1 % (0.0-1.0); HEMATOCRIT 24.9 % (36.0-47.0); HEMOGLOBIN 8.2 g/dl (12.0-15.5); LYMPH # 0.7 10^3/uL (1.5-5.0); LYMPH % 5.4 % (24.0-44.0); MEAN CORPUSCULAR HEMOGLOBIN 31.2 pg (27.0-33.0); MEAN CORPUSCULAR HGB CONC 32.9 g/dl (32.0-36.5); MEAN CORPUSCULAR VOLUME 94.7 fl (80.0-96.0); MONO # 0.2 10^3/uL (0.0-0.8); MONO % 1.3 % (2.0-8.0); NEUTROPHILS # 11.8 10^3/uL (1.5-8.5); NEUTROPHILS % 92.6 % (36.0-66.0); PLATELET COUNT, AUTOMATED 354 10^3/uL (150-450); RED BLOOD COUNT 2.63 10^6/uL (4.00-5.40); WHITE BLOOD COUNT 12.7 10^3/uL (4.0-10.0)
[2021-08-11 21:35] LABS: ALBUMIN 1.5 GM/DL (3.2-5.2); ALT/SGPT 25 U/L (12-78); BILIRUBIN,TOTAL 0.2 MG/DL (0.2-1.0); BLOOD UREA NITROGEN 20 MG/DL (7-18); C REACTIVE PROTEIN QUANTITATIV 0.72 MG/DL (0.00-0.30); CALCIUM LEVEL 7.3 MG/DL (8.5-10.1); CARBON DIOXIDE LEVEL 25 MEQ/L (21-32); CHLORIDE LEVEL 112 MEQ/L (98-107); CREATININE FOR GFR 0.97 MG/DL (0.55-1.30); GLOMERULAR FILTRATION RATE > 60.0 (>51); GLUCOSE, FASTING 101 MG/DL (70-100); LIPASE 43 U/L (73-393); POTASSIUM SERUM 2.8 MEQ/L (3.5-5.1); SODIUM LEVEL 142 MEQ/L (136-145); TOTAL PROTEIN 4.2 GM/DL (6.4-8.2)
[2021-08-11] MEDS ORDERED: KCL 10MEQ/100ML SWI (KRUN) 10 MEQ in IV 1 EA IV ONE (22:00)
[2021-08-11] MEDS ORDERED: POTASSIUM CHLORIDE 10MEQ SR TABLET PO ONE ×2 (22:00)
[2021-08-11 22:12] LABS: MAGNESIUM LEVEL 1.8 MG/DL (1.8-2.4)
[2021-08-11] MEDS ORDERED: ISOVUE-370 76% 100ML VIAL As Ordered ONE (22:15)
[2021-08-12 01:13] LABS: RSV AMPLIFICATION NEGATIVE (NEGATIVE)
[2021-08-12] MEDS ORDERED: KETOROLAC 30 MG/ML 1ML VIAL IV PRN (02:25)
[2021-08-12] MEDS ORDERED: HYDROMORPHONE HCL 0.5 MG/ 0.5 ML SYRINGE (J1170 PER 1) IV PRN (02:25)
[2021-08-12] MEDS ORDERED: PANT-23 PO (02:47)
[2021-08-12] MEDS ORDERED: UNIS25TA3 PO (02:47)
[2021-08-12] MEDS ORDERED: FLUO20CA22 PO (02:47)
[2021-08-12] MEDS ORDERED: NYST50SS SS (02:47)
[2021-08-12] MEDS ORDERED: ATOR80TA59 PO (02:47)
[2021-08-12] MEDS ORDERED: VITA100093 PO (02:47)
[2021-08-12] MEDS ORDERED: PRED10TA2 PO (02:47)
[2021-08-12] MEDS ORDERED: ERGO500029 PO (02:47)
[2021-08-12] MEDS ORDERED: POTA1TAB23 PO (02:47)
[2021-08-12] MEDS ORDERED: NALT50TA4 PO (02:47)
[2021-08-12] MEDS ORDERED: MULT400T10 PO (02:47)
[2021-08-12] MEDS ORDERED: FAMO20TA PO (02:47)
[2021-08-12] MEDS ORDERED: FOLI1TAB11 PO (02:47)
[2021-08-12] MEDS ORDERED: TOPI50TA9 PO (02:50)
[2021-08-12] MEDS ORDERED: HOME MED LIST COMPLETE! XX SCH (02:55)
[2021-08-12] MEDS ORDERED: NS 0.45% 1,000 ML IV SCH (03:00)
[2021-08-12 07:23] LABS: HEMATOCRIT 26.5 % (36.0-47.0); HEMOGLOBIN 8.5 g/dl (12.0-15.5)
[2021-08-12 08:37] LABS: CALCIUM LEVEL 7.7 MG/DL (8.5-10.1); CREATININE FOR GFR 1.02 MG/DL (0.55-1.30); GLOMERULAR FILTRATION RATE 59.7 (>51); PERCENT SATURATION 34.6 % (13.2-45.0)
[2021-08-12] MEDS ORDERED: methylPREDNISolone 40MG 1ML VIAL IV SCH (09:00)
[2021-08-12 14:33] VITALS: BP 116/72
[2021-08-12] MEDS: POTASSIUM CHLORIDE 10MEQ SR TABLET PO SCH ×3 (15:26→22:22)
[2021-08-12] MEDS: MESALAMINE 250 MG CR CAP PO SCH ×2 (16:30→22:21)
[2021-08-12 18:00] VITALS: BP 98/60
[2021-08-12] MEDS: NYSTATIN 500,000 U/5 ML SUSP UDC SS SCH (22:19)
[2021-08-12] MEDS: levETIRAcetam 250MG TABLET (KEPPRA) PO SCH (22:19)
[2021-08-12] MEDS: ATORVASTATIN 20 MG TAB PO SCH (22:20)
[2021-08-12] MEDS: TOPIRAMATE (TopAMAX) 100 MG TAB PO SCH (22:20)
[2021-08-12] MEDS: TOPIRAMATE (TopAMAX) 25 MG TAB PO SCH (22:21)
[2021-08-12] MEDS: PRAMIPEXOLE 0.25 MG TAB PO SCH (22:21)
[2021-08-12] MEDS: FAMOTIDINE 20 MG TAB PO SCH (22:21)
[2021-08-12] MEDS: ACETAMINOPHEN TAB 650MG DOSE (2X325MG) PO PRN (22:28)
[2021-08-12] MEDS: methylPREDNISolone 40MG 1ML VIAL IV SCH (22:28)
[2021-08-12] MEDS: PANTOPRAZOLE 40MG TAB (PROTONIX) PO SCH (22:28)
[2021-08-12] MEDS: VANCOMYCIN ORAL SOL 250MG/5ML ORAL SYRINGE PO SCH (23:48)
[2021-08-12] MEDS: LACOSAMIDE 50 MG TAB (VIMPAT) PO SCH (23:48)
[2021-08-13 06:00] VITALS: BP 96/61
[2021-08-13] MEDS: VANCOMYCIN ORAL SOL 250MG/5ML ORAL SYRINGE PO SCH ×4 (06:00→23:59)
[2021-08-13] MEDS: MESALAMINE 250 MG CR CAP PO SCH ×2 (06:00→15:14)
[2021-08-13 06:21] LABS: HEMATOCRIT 25.7 % (36.0-47.0); HEMOGLOBIN 8.3 g/dl (12.0-15.5); MEAN CORPUSCULAR HEMOGLOBIN 30.6 pg (27.0-33.0); MEAN CORPUSCULAR HGB CONC 32.3 g/dl (32.0-36.5); MEAN CORPUSCULAR VOLUME 94.8 fl (80.0-96.0); PLATELET COUNT, AUTOMATED 335 10^3/uL (150-450); RED BLOOD COUNT 2.71 10^6/uL (4.00-5.40); WHITE BLOOD COUNT 13.4 10^3/uL (4.0-10.0)
[2021-08-13 06:48] LABS: BLOOD UREA NITROGEN 14 MG/DL (7-18); CALCIUM LEVEL 7.5 MG/DL (8.5-10.1); CARBON DIOXIDE LEVEL 22 MEQ/L (21-32); CHLORIDE LEVEL 116 MEQ/L (98-107); CREATININE FOR GFR 0.69 MG/DL (0.55-1.30); GLOMERULAR FILTRATION RATE > 60.0 (>51); GLUCOSE, FASTING 72 MG/DL (70-100); MAGNESIUM LEVEL 1.8 MG/DL (1.8-2.4); POTASSIUM SERUM 4.3 MEQ/L (3.5-5.1); SODIUM LEVEL 144 MEQ/L (136-145)
[2021-08-13] MEDS ORDERED: NALTREXONE 50 MG TAB PO SCH (09:00)
[2021-08-13] MEDS ORDERED: MORPHINE 2 MG/ML 1ML VIAL IV ONE (09:50)
[2021-08-13] MEDS: methylPREDNISolone 40MG 1ML VIAL IV SCH ×2 (10:17→20:57)
[2021-08-13] MEDS: ONDANSETRON 4MG/2ML VIAL IV PRN (11:08)
[2021-08-13] MEDS: FOLIC ACID 1 MG TAB PO SCH (11:11)
[2021-08-13] MEDS: FAMOTIDINE 20 MG TAB PO SCH ×2 (11:11→21:02)
[2021-08-13] MEDS: LACOSAMIDE 50 MG TAB (VIMPAT) PO SCH ×2 (11:11→20:58)
[2021-08-13] MEDS: FLUoxetine 20MG CAP PO SCH (11:11)
[2021-08-13] MEDS: VITAMIN D 1,000 INTERNATIONAL UNITS TABLET PO SCH (11:41)
[2021-08-13] MEDS: TOPIRAMATE (TopAMAX) 100 MG TAB PO SCH ×2 (11:42→21:01)
[2021-08-13] MEDS: POTASSIUM CHLORIDE 10MEQ SR TABLET PO SCH ×2 (11:42→21:00)
[2021-08-13] MEDS: NYSTATIN 500,000 U/5 ML SUSP UDC SS SCH ×2 (11:42→15:15)
[2021-08-13] MEDS: PRAMIPEXOLE 0.25 MG TAB PO SCH ×2 (11:43→20:58)
[2021-08-13] MEDS: PANTOPRAZOLE 40MG TAB (PROTONIX) PO SCH ×2 (11:43→20:58)
[2021-08-13 14:00] VITALS: BP 94/54
[2021-08-13 19:20] VITALS: BP 87/54
[2021-08-13] MEDS: levETIRAcetam 250MG TABLET (KEPPRA) PO SCH (20:59)
[2021-08-13] MEDS: ATORVASTATIN 20 MG TAB PO SCH (21:01)
[2021-08-13] MEDS: TOPIRAMATE (TopAMAX) 25 MG TAB PO SCH (21:02)
[2021-08-14 06:00] VITALS: BP 95/61
[2021-08-14] MEDS: VANCOMYCIN ORAL SOL 250MG/5ML ORAL SYRINGE PO SCH ×4 (06:08→23:35)
[2021-08-14 07:54] LABS: BLOOD UREA NITROGEN 15 MG/DL (7-18); CALCIUM LEVEL 7.7 MG/DL (8.5-10.1); CARBON DIOXIDE LEVEL 21 MEQ/L (21-32); CHLORIDE LEVEL 119 MEQ/L (98-107); CREATININE FOR GFR 0.79 MG/DL (0.55-1.30); GLOMERULAR FILTRATION RATE > 60.0 (>51); GLUCOSE, FASTING 84 MG/DL (70-100); MAGNESIUM LEVEL 1.8 MG/DL (1.8-2.4); POTASSIUM SERUM 4.1 MEQ/L (3.5-5.1); SODIUM LEVEL 143 MEQ/L (136-145)
[2021-08-14] MEDS: FAMOTIDINE 20 MG TAB PO SCH ×2 (09:56→22:27)
[2021-08-14] MEDS: methylPREDNISolone 40MG 1ML VIAL IV SCH (09:56)
[2021-08-14] MEDS: VITAMIN D 1,000 INTERNATIONAL UNITS TABLET PO SCH (09:57)
[2021-08-14] MEDS: TOPIRAMATE (TopAMAX) 100 MG TAB PO SCH ×2 (09:57→22:31)
[2021-08-14] MEDS: PRAMIPEXOLE 0.25 MG TAB PO SCH ×2 (09:57→22:27)
[2021-08-14] MEDS: POTASSIUM CHLORIDE 10MEQ SR TABLET PO SCH ×2 (09:57→22:28)
[2021-08-14] MEDS: FLUoxetine 20MG CAP PO SCH (09:57)
[2021-08-14] MEDS: LACOSAMIDE 50 MG TAB (VIMPAT) PO SCH ×2 (09:57→23:34)
[2021-08-14] MEDS: FOLIC ACID 1 MG TAB PO SCH (09:58)
[2021-08-14] MEDS: PANTOPRAZOLE 40MG TAB (PROTONIX) PO SCH ×2 (09:58→22:28)
[2021-08-14 11:50] LABS: HEMATOCRIT 25.9 % (36.0-47.0); HEMOGLOBIN 8.1 g/dl (12.0-15.5); MEAN CORPUSCULAR HEMOGLOBIN 30.8 pg (27.0-33.0); MEAN CORPUSCULAR HGB CONC 31.3 g/dl (32.0-36.5); MEAN CORPUSCULAR VOLUME 98.5 fl (80.0-96.0); PLATELET COUNT, AUTOMATED 399 10^3/uL (150-450); RED BLOOD COUNT 2.63 10^6/uL (4.00-5.40); WHITE BLOOD COUNT 10.6 10^3/uL (4.0-10.0)
[2021-08-14 14:00] VITALS: BP 96/53
[2021-08-14] MEDS: FERROUS SULFATE 325MG TAB PO SCH (14:45)
[2021-08-14 18:00] VITALS: BP 106/65
[2021-08-14 22:00] VITALS: BP 96/56
[2021-08-14] MEDS: ATORVASTATIN 20 MG TAB PO SCH (22:29)
[2021-08-14] MEDS: levETIRAcetam 250MG TABLET (KEPPRA) PO SCH (22:30)
[2021-08-14] MEDS: TOPIRAMATE (TopAMAX) 25 MG TAB PO SCH (22:31)
[2021-08-15] MEDS: VANCOMYCIN ORAL SOL 250MG/5ML ORAL SYRINGE PO SCH ×3 (05:20→17:15)
[2021-08-15] MEDS: MORPHINE 2 MG/ML 1ML VIAL IV PRN ×2 (05:21→20:47)
[2021-08-15 06:00] VITALS: BP 92/53
[2021-08-15 06:16] LABS: HEMATOCRIT 23.7 % (36.0-47.0); HEMOGLOBIN 7.6 g/dl (12.0-15.5); MEAN CORPUSCULAR HEMOGLOBIN 31.5 pg (27.0-33.0); MEAN CORPUSCULAR HGB CONC 32.1 g/dl (32.0-36.5); MEAN CORPUSCULAR VOLUME 98.3 fl (80.0-96.0); PLATELET COUNT, AUTOMATED 373 10^3/uL (150-450); RED BLOOD COUNT 2.41 10^6/uL (4.00-5.40)
[2021-08-15 06:39] LABS: BLOOD UREA NITROGEN 16 MG/DL (7-18); CALCIUM LEVEL 7.6 MG/DL (8.5-10.1); CARBON DIOXIDE LEVEL 24 MEQ/L (21-32); CHLORIDE LEVEL 119 MEQ/L (98-107); CREATININE FOR GFR 0.78 MG/DL (0.55-1.30); GLOMERULAR FILTRATION RATE > 60.0 (>51); GLUCOSE, FASTING 75 MG/DL (70-100); MAGNESIUM LEVEL 1.8 MG/DL (1.8-2.4); POTASSIUM SERUM 3.5 MEQ/L (3.5-5.1); SODIUM LEVEL 145 MEQ/L (136-145)
[2021-08-15] MEDS: FERROUS SULFATE 325MG TAB PO SCH (08:14)
[2021-08-15] MEDS: TOPIRAMATE (TopAMAX) 100 MG TAB PO SCH ×2 (08:15→20:48)
[2021-08-15] MEDS: PRAMIPEXOLE 0.25 MG TAB PO SCH ×2 (08:15→20:48)
[2021-08-15] MEDS: FOLIC ACID 1 MG TAB PO SCH (08:15)
[2021-08-15] MEDS: POTASSIUM CHLORIDE 10MEQ SR TABLET PO SCH ×2 (08:15→20:48)
[2021-08-15] MEDS: FLUoxetine 20MG CAP PO SCH (08:15)
[2021-08-15] MEDS: VITAMIN D 1,000 INTERNATIONAL UNITS TABLET PO SCH (08:15)
[2021-08-15] MEDS: FAMOTIDINE 20 MG TAB PO SCH ×2 (08:15→20:48)
[2021-08-15] MEDS: LACOSAMIDE 50 MG TAB (VIMPAT) PO SCH ×2 (08:15→20:48)
[2021-08-15] MEDS: PANTOPRAZOLE 40MG TAB (PROTONIX) PO SCH ×2 (08:15→20:48)
[2021-08-15] MEDS: methylPREDNISolone 40MG 1ML VIAL IV SCH (11:47)
[2021-08-15 12:28] LABS: HEMATOCRIT 26.4 % (36.0-47.0); HEMOGLOBIN 8.4 g/dl (12.0-15.5)
[2021-08-15 14:00] VITALS: BP_SYST 157; BP_SYST 93; BP_DIAS 51; BP_DIAS 70
[2021-08-15 18:54] LABS: HEMATOCRIT 29.2 % (36.0-47.0); HEMOGLOBIN 8.9 g/dl (12.0-15.5)
[2021-08-15 19:00] VITALS: BP 94/55
[2021-08-15] MEDS: ATORVASTATIN 20 MG TAB PO SCH (20:47)
[2021-08-15] MEDS: levETIRAcetam 250MG TABLET (KEPPRA) PO SCH (20:48)
[2021-08-15] MEDS: TOPIRAMATE (TopAMAX) 25 MG TAB PO SCH (20:49)
[2021-08-16 00:30] LABS: HEMATOCRIT 24.5 % (36.0-47.0); HEMOGLOBIN 7.8 g/dl (12.0-15.5)
[2021-08-16] MEDS: ONDANSETRON 4MG/2ML VIAL IV PRN (02:16)
[2021-08-16] MEDS: VANCOMYCIN ORAL SOL 250MG/5ML ORAL SYRINGE PO SCH ×2 (05:06)
[2021-08-16 06:00] VITALS: BP 94/55
[2021-08-16 06:46] LABS: HEMATOCRIT 25.6 % (36.0-47.0); MEAN CORPUSCULAR HEMOGLOBIN 30.2 pg (27.0-33.0); MEAN CORPUSCULAR HGB CONC 31.3 g/dl (32.0-36.5); MEAN CORPUSCULAR VOLUME 96.6 fl (80.0-96.0); PLATELET COUNT, AUTOMATED 378 10^3/uL (150-450); RED BLOOD COUNT 2.65 10^6/uL (4.00-5.40); WHITE BLOOD COUNT 10.9 10^3/uL (4.0-10.0)
[2021-08-16 07:14] LABS: BLOOD UREA NITROGEN 12 MG/DL (7-18); CALCIUM LEVEL 7.2 MG/DL (8.5-10.1); CARBON DIOXIDE LEVEL 22 MEQ/L (21-32); CHLORIDE LEVEL 115 MEQ/L (98-107); CREATININE FOR GFR 0.74 MG/DL (0.55-1.30); GLOMERULAR FILTRATION RATE > 60.0 (>51); GLUCOSE, FASTING 66 MG/DL (70-100); MAGNESIUM LEVEL 1.8 MG/DL (1.8-2.4); POTASSIUM SERUM 3.3 MEQ/L (3.5-5.1); SODIUM LEVEL 142 MEQ/L (136-145)
[2021-08-16] MEDS: methylPREDNISolone 40MG 1ML VIAL IV SCH (09:35)
[2021-08-16] MEDS: TOPIRAMATE (TopAMAX) 100 MG TAB PO SCH ×2 (09:35→21:04)
[2021-08-16] MEDS: FLUoxetine 20MG CAP PO SCH (09:35)
[2021-08-16] MEDS: VITAMIN D 1,000 INTERNATIONAL UNITS TABLET PO SCH (09:36)
[2021-08-16] MEDS: POTASSIUM CHLORIDE 10MEQ SR TABLET PO SCH ×2 (09:36→21:04)
[2021-08-16] MEDS: LACOSAMIDE 50 MG TAB (VIMPAT) PO SCH ×2 (09:36→21:04)
[2021-08-16] MEDS: FAMOTIDINE 20 MG TAB PO SCH ×2 (09:36→21:04)
[2021-08-16] MEDS: FERROUS SULFATE 325MG TAB PO SCH (09:36)
[2021-08-16] MEDS: FOLIC ACID 1 MG TAB PO SCH (09:36)
[2021-08-16] MEDS: PRAMIPEXOLE 0.25 MG TAB PO SCH ×2 (09:36→21:04)
[2021-08-16] MEDS: PANTOPRAZOLE 40MG TAB (PROTONIX) PO SCH ×2 (09:36→21:04)
[2021-08-16] MEDS: FIDAXOMICIN 200 MG TAB (DIFICID) PO SCH ×2 (11:27→21:04)
[2021-08-16 14:00] VITALS: BP 90/55
[2021-08-16] MEDS: MORPHINE 2 MG/ML 1ML VIAL IV PRN (18:13)
[2021-08-16 20:09] VITALS: BP 108/64
[2021-08-16] MEDS: ATORVASTATIN 20 MG TAB PO SCH (21:03)
[2021-08-16] MEDS: levETIRAcetam 250MG TABLET (KEPPRA) PO SCH (21:04)
[2021-08-16] MEDS: TOPIRAMATE (TopAMAX) 25 MG TAB PO SCH (21:05)
[2021-08-17] MEDS: ONDANSETRON 4MG/2ML VIAL IV PRN ×2 (01:46→21:41)
[2021-08-17] MEDS: MORPHINE 2 MG/ML 1ML VIAL IV PRN ×3 (01:47→21:42)
[2021-08-17 04:33] VITALS: BP 102/50
[2021-08-17 05:47] LABS: HEMATOCRIT 24.1 % (36.0-47.0); HEMOGLOBIN 7.7 g/dl (12.0-15.5); MEAN CORPUSCULAR HEMOGLOBIN 31.4 pg (27.0-33.0); MEAN CORPUSCULAR VOLUME 98.4 fl (80.0-96.0); PLATELET COUNT, AUTOMATED 360 10^3/uL (150-450); RED BLOOD COUNT 2.45 10^6/uL (4.00-5.40); WHITE BLOOD COUNT 11.2 10^3/uL (4.0-10.0)
[2021-08-17 06:07] LABS: BLOOD UREA NITROGEN 12 MG/DL (7-18); CALCIUM LEVEL 7.2 MG/DL (8.5-10.1); CARBON DIOXIDE LEVEL 22 MEQ/L (21-32); CHLORIDE LEVEL 118 MEQ/L (98-107); GLOMERULAR FILTRATION RATE > 60.0 (>51); GLUCOSE, FASTING 92 MG/DL (70-100); MAGNESIUM LEVEL 1.6 MG/DL (1.8-2.4); POTASSIUM SERUM 3.4 MEQ/L (3.5-5.1); SODIUM LEVEL 144 MEQ/L (136-145)
[2021-08-17] MEDS ORDERED: POTASSIUM CHLORIDE 10MEQ SR TABLET PO ONE (08:00)
[2021-08-17 08:21] LABS: HEMATOCRIT 26.3 % (36.0-47.0); HEMOGLOBIN 8.4 g/dl (12.0-15.5)
[2021-08-17] MEDS ORDERED: MAGNESIUM OXIDE 400MG TAB (MAG-OX) PO ONE (09:00)
[2021-08-17] MEDS: FLUoxetine 20MG CAP PO SCH (09:38)
[2021-08-17] MEDS: VITAMIN D 1,000 INTERNATIONAL UNITS TABLET PO SCH (09:38)
[2021-08-17] MEDS: methylPREDNISolone 40MG 1ML VIAL IV SCH (09:38)
[2021-08-17] MEDS: FAMOTIDINE 20 MG TAB PO SCH ×2 (09:39→22:34)
[2021-08-17] MEDS: LACTOBACILLUS ACIDOPHILUS CAP (BACID) PO SCH ×2 (09:39→17:11)
[2021-08-17] MEDS: FIDAXOMICIN 200 MG TAB (DIFICID) PO SCH ×2 (09:39→22:35)
[2021-08-17] MEDS: FOLIC ACID 1 MG TAB PO SCH (09:39)
[2021-08-17] MEDS: TOPIRAMATE (TopAMAX) 100 MG TAB PO SCH ×2 (09:40→22:35)
[2021-08-17] MEDS: PRAMIPEXOLE 0.25 MG TAB PO SCH ×2 (09:40→22:34)
[2021-08-17] MEDS: PANTOPRAZOLE 40MG TAB (PROTONIX) PO SCH ×2 (09:41→22:34)
[2021-08-17] MEDS: FERROUS SULFATE 325MG TAB PO SCH (09:41)
[2021-08-17] MEDS: LACOSAMIDE 50 MG TAB (VIMPAT) PO SCH ×2 (09:42→22:34)
[2021-08-17] MEDS: POTASSIUM CHLORIDE 10MEQ SR TABLET PO SCH ×2 (09:48→22:35)
[2021-08-17 13:20] LABS: HEMATOCRIT 24.5 % (36.0-47.0); HEMOGLOBIN 7.7 g/dl (12.0-15.5)
[2021-08-17 14:00] VITALS: BP 102/60
[2021-08-17 18:00] VITALS: BP 96/58
[2021-08-17 19:31] LABS: HEMOGLOBIN 7.2 g/dl (12.0-15.5)
[2021-08-17 20:00] VITALS: BP 151/68
[2021-08-17 21:28] VITALS: BP 105/68
[2021-08-17] MEDS: levETIRAcetam 250MG TABLET (KEPPRA) PO SCH (22:35)
[2021-08-17] MEDS: ATORVASTATIN 20 MG TAB PO SCH (22:35)
[2021-08-17] MEDS: TOPIRAMATE (TopAMAX) 25 MG TAB PO SCH (22:36)
[2021-08-18 05:30] VITALS: BP 97/56
[2021-08-18 06:41] LABS: HEMATOCRIT 23.1 % (36.0-47.0); HEMOGLOBIN 7.3 g/dl (12.0-15.5); MEAN CORPUSCULAR HEMOGLOBIN 30.5 pg (27.0-33.0); MEAN CORPUSCULAR HGB CONC 31.6 g/dl (32.0-36.5); MEAN CORPUSCULAR VOLUME 96.7 fl (80.0-96.0); PLATELET COUNT, AUTOMATED 361 10^3/uL (150-450); RED BLOOD COUNT 2.39 10^6/uL (4.00-5.40); WHITE BLOOD COUNT 8.7 10^3/uL (4.0-10.0)
[2021-08-18 07:10] LABS: BLOOD UREA NITROGEN 11 MG/DL (7-18); CALCIUM LEVEL 7.3 MG/DL (8.5-10.1); CARBON DIOXIDE LEVEL 24 MEQ/L (21-32); CHLORIDE LEVEL 116 MEQ/L (98-107); CREATININE FOR GFR 0.79 MG/DL (0.55-1.30); GLOMERULAR FILTRATION RATE > 60.0 (>51); GLUCOSE, FASTING 79 MG/DL (70-100); MAGNESIUM LEVEL 1.6 MG/DL (1.8-2.4); POTASSIUM SERUM 3.1 MEQ/L (3.5-5.1); SODIUM LEVEL 143 MEQ/L (136-145)
[2021-08-18] MEDS ORDERED: MAG SULF 1GM/100ML (MAG RUN) 1 GM in IV 1 EA IV ONE (08:00)
[2021-08-18] MEDS: FLUoxetine 20MG CAP PO SCH (10:06)
[2021-08-18] MEDS: FERROUS SULFATE 325MG TAB PO SCH (10:06)
[2021-08-18] MEDS: methylPREDNISolone 40MG 1ML VIAL IV SCH (10:06)
[2021-08-18] MEDS: VITAMIN D 1,000 INTERNATIONAL UNITS TABLET PO SCH (10:07)
[2021-08-18] MEDS: FIDAXOMICIN 200 MG TAB (DIFICID) PO SCH ×2 (10:07→21:40)
[2021-08-18] MEDS: FOLIC ACID 1 MG TAB PO SCH (10:07)
[2021-08-18] MEDS: FAMOTIDINE 20 MG TAB PO SCH ×2 (10:08→21:41)
[2021-08-18] MEDS: TOPIRAMATE (TopAMAX) 100 MG TAB PO SCH ×2 (10:08→21:40)
[2021-08-18] MEDS: POTASSIUM CHLORIDE 10MEQ SR TABLET PO SCH ×2 (10:08→21:41)
[2021-08-18] MEDS: PRAMIPEXOLE 0.25 MG TAB PO SCH ×2 (10:08→21:40)
[2021-08-18] MEDS: PANTOPRAZOLE 40MG TAB (PROTONIX) PO SCH ×2 (10:09→21:39)
[2021-08-18] MEDS: LACOSAMIDE 50 MG TAB (VIMPAT) PO SCH ×2 (10:09→21:41)
[2021-08-18] MEDS: LACTOBACILLUS ACIDOPHILUS CAP (BACID) PO SCH ×2 (10:09→18:42)
[2021-08-18 12:52] VITALS: BP 130/56
[2021-08-18 13:06] VITALS: BP 88/46
[2021-08-18 14:00] VITALS: BP 98/55
[2021-08-18 16:20] LABS: HEMATOCRIT 25.6 % (36.0-47.0); HEMOGLOBIN 8.2 g/dl (12.0-15.5)
[2021-08-18] MEDS: ATORVASTATIN 20 MG TAB PO SCH (21:40)
[2021-08-18] MEDS: TOPIRAMATE (TopAMAX) 25 MG TAB PO SCH (21:40)
[2021-08-18] MEDS: levETIRAcetam 250MG TABLET (KEPPRA) PO SCH (21:41)
[2021-08-18 22:00] VITALS: BP 120/67
[2021-08-19] MEDS: MORPHINE 2 MG/ML 1ML VIAL IV PRN ×3 (00:26→15:58)
[2021-08-19 05:10] VITALS: BP 113/64
[2021-08-19 06:07] LABS: HEMATOCRIT 29.2 % (36.0-47.0); HEMOGLOBIN 9.7 g/dl (12.0-15.5); MEAN CORPUSCULAR HEMOGLOBIN 31.1 pg (27.0-33.0); MEAN CORPUSCULAR HGB CONC 33.2 g/dl (32.0-36.5); MEAN CORPUSCULAR VOLUME 93.6 fl (80.0-96.0); PLATELET COUNT, AUTOMATED 376 10^3/uL (150-450); RED BLOOD COUNT 3.12 10^6/uL (4.00-5.40); WHITE BLOOD COUNT 11.4 10^3/uL (4.0-10.0)
[2021-08-19 06:22] LABS: BLOOD UREA NITROGEN 12 MG/DL (7-18); CALCIUM LEVEL 7.4 MG/DL (8.5-10.1); CARBON DIOXIDE LEVEL 22 MEQ/L (21-32); CHLORIDE LEVEL 117 MEQ/L (98-107); CREATININE FOR GFR 0.75 MG/DL (0.55-1.30); GLOMERULAR FILTRATION RATE > 60.0 (>51); GLUCOSE, FASTING 78 MG/DL (70-100); MAGNESIUM LEVEL 1.8 MG/DL (1.8-2.4); POTASSIUM SERUM 3.5 MEQ/L (3.5-5.1); SODIUM LEVEL 143 MEQ/L (136-145)
[2021-08-19] MEDS: FERROUS SULFATE 325MG TAB PO SCH (08:27)
[2021-08-19] MEDS: LACOSAMIDE 50 MG TAB (VIMPAT) PO SCH ×2 (08:27→20:24)
[2021-08-19] MEDS: methylPREDNISolone 40MG 1ML VIAL IV SCH (08:27)
[2021-08-19] MEDS: POTASSIUM CHLORIDE 10MEQ SR TABLET PO SCH ×2 (08:28→20:24)
[2021-08-19] MEDS: FOLIC ACID 1 MG TAB PO SCH (08:28)
[2021-08-19] MEDS: PRAMIPEXOLE 0.25 MG TAB PO SCH ×2 (08:28→20:24)
[2021-08-19] MEDS: LACTOBACILLUS ACIDOPHILUS CAP (BACID) PO SCH ×2 (08:28→18:17)
[2021-08-19] MEDS: FAMOTIDINE 20 MG TAB PO SCH ×2 (08:28→20:25)
[2021-08-19] MEDS: VITAMIN D 1,000 INTERNATIONAL UNITS TABLET PO SCH (08:28)
[2021-08-19] MEDS: PANTOPRAZOLE 40MG TAB (PROTONIX) PO SCH ×2 (08:28→20:25)
[2021-08-19] MEDS: TOPIRAMATE (TopAMAX) 100 MG TAB PO SCH ×2 (08:28→20:25)
[2021-08-19] MEDS: FIDAXOMICIN 200 MG TAB (DIFICID) PO SCH ×2 (08:28→20:24)
[2021-08-19] MEDS: FLUoxetine 20MG CAP PO SCH (08:28)
[2021-08-19] MEDS: ONDANSETRON 4MG/2ML VIAL IV PRN ×2 (09:32→15:57)
[2021-08-19 14:00] VITALS: BP 86/62
[2021-08-19 16:06] VITALS: BP 120/74
[2021-08-19] MEDS: ATORVASTATIN 20 MG TAB PO SCH (20:24)
[2021-08-19] MEDS: levETIRAcetam 250MG TABLET (KEPPRA) PO SCH (20:24)
[2021-08-19] MEDS: TOPIRAMATE (TopAMAX) 25 MG TAB PO SCH (20:25)
[2021-08-19 22:00] VITALS: BP 110/56
[2021-08-20] MEDS: ONDANSETRON 4MG/2ML VIAL IV PRN ×3 (00:13→19:12)
[2021-08-20] MEDS: MORPHINE 2 MG/ML 1ML VIAL IV PRN ×3 (00:14→19:13)
[2021-08-20 05:22] LABS: HEMATOCRIT 27.7 % (36.0-47.0); HEMOGLOBIN 8.8 g/dl (12.0-15.5); MEAN CORPUSCULAR HEMOGLOBIN 29.8 pg (27.0-33.0); MEAN CORPUSCULAR HGB CONC 31.8 g/dl (32.0-36.5); MEAN CORPUSCULAR VOLUME 93.9 fl (80.0-96.0); PLATELET COUNT, AUTOMATED 402 10^3/uL (150-450); RED BLOOD COUNT 2.95 10^6/uL (4.00-5.40); WHITE BLOOD COUNT 11.5 10^3/uL (4.0-10.0)
[2021-08-20 05:42] LABS: BLOOD UREA NITROGEN 10 MG/DL (7-18); CALCIUM LEVEL 7.2 MG/DL (8.5-10.1); CARBON DIOXIDE LEVEL 24 MEQ/L (21-32); CHLORIDE LEVEL 118 MEQ/L (98-107); CREATININE FOR GFR 0.73 MG/DL (0.55-1.30); GLOMERULAR FILTRATION RATE > 60.0 (>51); GLUCOSE, FASTING 80 MG/DL (70-100); MAGNESIUM LEVEL 1.7 MG/DL (1.8-2.4); POTASSIUM SERUM 3.8 MEQ/L (3.5-5.1); SODIUM LEVEL 145 MEQ/L (136-145)
[2021-08-20 06:00] VITALS: BP 115/69
[2021-08-20] MEDS: PANTOPRAZOLE 40MG TAB (PROTONIX) PO SCH ×2 (08:49→20:31)
[2021-08-20] MEDS: LACTOBACILLUS ACIDOPHILUS CAP (BACID) PO SCH ×2 (08:49→17:42)
[2021-08-20] MEDS: POTASSIUM CHLORIDE 10MEQ SR TABLET PO SCH ×2 (08:50→20:32)
[2021-08-20] MEDS: PRAMIPEXOLE 0.25 MG TAB PO SCH ×2 (08:50→20:31)
[2021-08-20] MEDS: FERROUS SULFATE 325MG TAB PO SCH (08:50)
[2021-08-20] MEDS: FLUoxetine 20MG CAP PO SCH (08:50)
[2021-08-20] MEDS: methylPREDNISolone 40MG 1ML VIAL IV SCH (08:50)
[2021-08-20] MEDS: FIDAXOMICIN 200 MG TAB (DIFICID) PO SCH ×2 (08:50→20:31)
[2021-08-20] MEDS: LACOSAMIDE 50 MG TAB (VIMPAT) PO SCH ×2 (08:50→20:32)
[2021-08-20] MEDS: VITAMIN D 1,000 INTERNATIONAL UNITS TABLET PO SCH (08:51)
[2021-08-20] MEDS: TOPIRAMATE (TopAMAX) 100 MG TAB PO SCH ×2 (08:51→20:31)
[2021-08-20] MEDS: FAMOTIDINE 20 MG TAB PO SCH ×2 (08:51→20:31)
[2021-08-20] MEDS: FOLIC ACID 1 MG TAB PO SCH (08:51)
[2021-08-20 14:00] VITALS: BP 90/62
[2021-08-20] MEDS: levETIRAcetam 250MG TABLET (KEPPRA) PO SCH (20:30)
[2021-08-20] MEDS: ATORVASTATIN 20 MG TAB PO SCH (20:30)
[2021-08-20] MEDS: TOPIRAMATE (TopAMAX) 25 MG TAB PO SCH (20:31)
[2021-08-20 22:00] VITALS: BP 120/69
[2021-08-21 05:09] LABS: HEMATOCRIT 29.4 % (36.0-47.0); HEMOGLOBIN 9.1 g/dl (12.0-15.5); MEAN CORPUSCULAR HEMOGLOBIN 29.3 pg (27.0-33.0); MEAN CORPUSCULAR VOLUME 94.5 fl (80.0-96.0); PLATELET COUNT, AUTOMATED 395 10^3/uL (150-450); RED BLOOD COUNT 3.11 10^6/uL (4.00-5.40); WHITE BLOOD COUNT 13.4 10^3/uL (4.0-10.0)
[2021-08-21 05:42] LABS: BLOOD UREA NITROGEN 10 MG/DL (7-18); CALCIUM LEVEL 7.6 MG/DL (8.5-10.1); CARBON DIOXIDE LEVEL 21 MEQ/L (21-32); CHLORIDE LEVEL 117 MEQ/L (98-107); CREATININE FOR GFR 0.79 MG/DL (0.55-1.30); GLOMERULAR FILTRATION RATE > 60.0 (>51); GLUCOSE, FASTING 62 MG/DL (70-100); MAGNESIUM LEVEL 1.8 MG/DL (1.8-2.4); POTASSIUM SERUM 3.9 MEQ/L (3.5-5.1); SODIUM LEVEL 143 MEQ/L (136-145)
[2021-08-21 06:00] VITALS: BP 97/58
[2021-08-21] MEDS: LACTOBACILLUS ACIDOPHILUS CAP (BACID) PO SCH ×2 (07:50→18:15)
[2021-08-21] MEDS: ONDANSETRON 4MG/2ML VIAL IV PRN ×2 (07:50→16:21)
[2021-08-21] MEDS: MORPHINE 2 MG/ML 1ML VIAL IV PRN (07:50)
[2021-08-21] MEDS: FIDAXOMICIN 200 MG TAB (DIFICID) PO SCH ×2 (08:26→20:21)
[2021-08-21] MEDS: LACOSAMIDE 50 MG TAB (VIMPAT) PO SCH ×2 (08:26→20:19)
[2021-08-21] MEDS: methylPREDNISolone 40MG 1ML VIAL IV SCH (08:26)
[2021-08-21] MEDS: FERROUS SULFATE 325MG TAB PO SCH (08:27)
[2021-08-21] MEDS: VITAMIN D 1,000 INTERNATIONAL UNITS TABLET PO SCH (08:27)
[2021-08-21] MEDS: PANTOPRAZOLE 40MG TAB (PROTONIX) PO SCH ×2 (08:28→20:19)
[2021-08-21] MEDS: PRAMIPEXOLE 0.25 MG TAB PO SCH ×2 (08:28→20:20)
[2021-08-21] MEDS: POTASSIUM CHLORIDE 10MEQ SR TABLET PO SCH ×2 (08:28→20:20)
[2021-08-21] MEDS: FAMOTIDINE 20 MG TAB PO SCH ×2 (08:28→20:19)
[2021-08-21] MEDS: TOPIRAMATE (TopAMAX) 100 MG TAB PO SCH ×2 (08:29→20:30)
[2021-08-21] MEDS: FLUoxetine 20MG CAP PO SCH (08:29)
[2021-08-21] MEDS: FOLIC ACID 1 MG TAB PO SCH (08:29)
[2021-08-21] MEDS: ARMODAFINIL 200 MG PO SCH (13:10)
[2021-08-21 14:00] VITALS: BP 95/56
[2021-08-21] MEDS ORDERED: KETOROLAC 30 MG/ML 1ML VIAL IV ONE (14:00)
[2021-08-21 18:00] VITALS: BP 108/69
[2021-08-21 20:10] LABS: HEPATITIS B SURFACE ANTIGEN NEGATIVE (NEGATIVE); HEPATITIS C VIRUS ABY INDEX 0.2 INDEX (<0.8); HIV 1&2 SCREEN CENTAUR NEGATIVE (NEGATIVE)
[2021-08-21] MEDS: levETIRAcetam 250MG TABLET (KEPPRA) PO SCH (20:19)
[2021-08-21] MEDS: TOPIRAMATE (TopAMAX) 25 MG TAB PO SCH (20:20)
[2021-08-21] MEDS: ATORVASTATIN 20 MG TAB PO SCH (20:21)
[2021-08-21] MEDS: KETOROLAC 30 MG/ML 1ML VIAL IV PRN (20:30)
[2021-08-21 21:56] LABS: GC DNA AMPLIFICATION NEGATIVE (NEGATIVE)
[2021-08-22] MEDS: ONDANSETRON 4MG/2ML VIAL IV PRN ×2 (00:01→08:51)
[2021-08-22] MEDS: MORPHINE 2 MG/ML 1ML VIAL IV PRN (00:07)
[2021-08-22] MEDS: KETOROLAC 30 MG/ML 1ML VIAL IV PRN (03:07)
[2021-08-22 05:40] VITALS: BP 127/78
[2021-08-22 06:02] LABS: HEMATOCRIT 30.3 % (36.0-47.0); HEMOGLOBIN 9.2 g/dl (12.0-15.5); MEAN CORPUSCULAR HEMOGLOBIN 29.5 pg (27.0-33.0); MEAN CORPUSCULAR HGB CONC 30.4 g/dl (32.0-36.5); MEAN CORPUSCULAR VOLUME 97.1 fl (80.0-96.0); PLATELET COUNT, AUTOMATED 245 10^3/uL (150-450); RED BLOOD COUNT 3.12 10^6/uL (4.00-5.40); WHITE BLOOD COUNT 10.9 10^3/uL (4.0-10.0)
[2021-08-22 06:34] LABS: BLOOD UREA NITROGEN 16 MG/DL (7-18); CALCIUM LEVEL 7.6 MG/DL (8.5-10.1); CARBON DIOXIDE LEVEL 21 MEQ/L (21-32); CHLORIDE LEVEL 114 MEQ/L (98-107); CREATININE FOR GFR 0.88 MG/DL (0.55-1.30); GLOMERULAR FILTRATION RATE > 60.0 (>51); GLUCOSE, FASTING 74 MG/DL (70-100); POTASSIUM SERUM 3.8 MEQ/L (3.5-5.1); SODIUM LEVEL 141 MEQ/L (136-145)
[2021-08-22] MEDS: predniSONE 10 MG TAB PO SCH (08:50)
[2021-08-22] MEDS: VITAMIN D 1,000 INTERNATIONAL UNITS TABLET PO SCH (08:50)
[2021-08-22] MEDS: FLUoxetine 20MG CAP PO SCH (08:50)
[2021-08-22] MEDS: FAMOTIDINE 20 MG TAB PO SCH ×2 (08:50→20:16)
[2021-08-22] MEDS: FOLIC ACID 1 MG TAB PO SCH (08:50)
[2021-08-22] MEDS: TOPIRAMATE (TopAMAX) 100 MG TAB PO SCH ×2 (08:50→20:16)
[2021-08-22] MEDS: POTASSIUM CHLORIDE 10MEQ SR TABLET PO SCH ×2 (08:51→20:15)
[2021-08-22] MEDS: LACOSAMIDE 50 MG TAB (VIMPAT) PO SCH ×2 (08:51→20:16)
[2021-08-22] MEDS: PANTOPRAZOLE 40MG TAB (PROTONIX) PO SCH ×2 (08:51→20:15)
[2021-08-22] MEDS: FERROUS SULFATE 325MG TAB PO SCH (08:52)
[2021-08-22] MEDS: FIDAXOMICIN 200 MG TAB (DIFICID) PO SCH ×2 (08:52→20:15)
[2021-08-22] MEDS: LACTOBACILLUS ACIDOPHILUS CAP (BACID) PO SCH ×2 (08:52→17:22)
[2021-08-22] MEDS: ARMODAFINIL 200 MG PO SCH (08:54)
[2021-08-22 09:15] VITALS: BP 110/58
[2021-08-22] MEDS: PRAMIPEXOLE 0.25 MG TAB PO SCH ×2 (09:21→20:15)
[2021-08-22 14:00] VITALS: BP 113/68
[2021-08-22] MEDS: levETIRAcetam 250MG TABLET (KEPPRA) PO SCH (20:15)
[2021-08-22] MEDS: ATORVASTATIN 20 MG TAB PO SCH (20:15)
[2021-08-22] MEDS: MESALAMINE 250 MG CR CAP PO SCH (20:15)
[2021-08-22] MEDS: TOPIRAMATE (TopAMAX) 25 MG TAB PO SCH (20:16)
[2021-08-22 22:00] VITALS: BP 104/64
[2021-08-22] MEDS ORDERED: DICYCLOMINE 10 MG CAP PO PRN (23:00)
[2021-08-23] MEDS: PERCOCET 5MG/325MG TAB PO PRN ×3 (02:46→20:27)
[2021-08-23 02:53] VITALS: BP 116/80
[2021-08-23 06:00] VITALS: BP 105/60
[2021-08-23 07:01] LABS: HEMATOCRIT 27.5 % (36.0-47.0); HEMOGLOBIN 8.5 g/dl (12.0-15.5); MEAN CORPUSCULAR HEMOGLOBIN 29.6 pg (27.0-33.0); MEAN CORPUSCULAR HGB CONC 30.9 g/dl (32.0-36.5); MEAN CORPUSCULAR VOLUME 95.8 fl (80.0-96.0); PLATELET COUNT, AUTOMATED 382 10^3/uL (150-450); RED BLOOD COUNT 2.87 10^6/uL (4.00-5.40); WHITE BLOOD COUNT 13.3 10^3/uL (4.0-10.0)
[2021-08-23 07:19] LABS: BLOOD UREA NITROGEN 18 MG/DL (7-18); CALCIUM LEVEL 7.7 MG/DL (8.5-10.1); CARBON DIOXIDE LEVEL 21 MEQ/L (21-32); CHLORIDE LEVEL 115 MEQ/L (98-107); CREATININE FOR GFR 0.91 MG/DL (0.55-1.30); GLOMERULAR FILTRATION RATE > 60.0 (>51); GLUCOSE, FASTING 75 MG/DL (70-100); POTASSIUM SERUM 3.9 MEQ/L (3.5-5.1); SODIUM LEVEL 142 MEQ/L (136-145)
[2021-08-23 07:40] VITALS: BP 111/68
[2021-08-23] MEDS: LACTOBACILLUS ACIDOPHILUS CAP (BACID) PO SCH ×2 (09:16→18:34)
[2021-08-23] MEDS: PANTOPRAZOLE 40MG TAB (PROTONIX) PO SCH ×2 (09:16→20:25)
[2021-08-23] MEDS: FAMOTIDINE 20 MG TAB PO SCH ×2 (09:16→20:26)
[2021-08-23] MEDS: FIDAXOMICIN 200 MG TAB (DIFICID) PO SCH ×2 (09:18→20:26)
[2021-08-23] MEDS: predniSONE 10 MG TAB PO SCH (09:18)
[2021-08-23] MEDS: ARMODAFINIL 200 MG PO SCH (10:50)
[2021-08-23] MEDS: PRAMIPEXOLE 0.25 MG TAB PO SCH ×2 (11:09→20:25)
[2021-08-23] MEDS: FLUoxetine 20MG CAP PO SCH (11:10)
[2021-08-23] MEDS: MESALAMINE 250 MG CR CAP PO SCH ×4 (11:10→20:26)
[2021-08-23] MEDS: TOPIRAMATE (TopAMAX) 100 MG TAB PO SCH ×2 (11:10→20:26)
[2021-08-23] MEDS: FOLIC ACID 1 MG TAB PO SCH (11:11)
[2021-08-23] MEDS: LACOSAMIDE 50 MG TAB (VIMPAT) PO SCH ×2 (11:11→20:26)
[2021-08-23] MEDS: POTASSIUM CHLORIDE 10MEQ SR TABLET PO SCH ×2 (11:11→20:25)
[2021-08-23] MEDS: FERROUS SULFATE 325MG TAB PO SCH (11:11)
[2021-08-23] MEDS: VITAMIN D 1,000 INTERNATIONAL UNITS TABLET PO SCH (11:12)
[2021-08-23 12:15] VITALS: BP 116/72
[2021-08-23] MEDS: ACETAMINOPHEN TAB 650MG DOSE (2X325MG) PO PRN (13:21)
[2021-08-23 14:36] VITALS: BP 96/62
[2021-08-23 15:35] LABS: HEMATOCRIT 28.5 % (36.0-47.0); MEAN CORPUSCULAR HEMOGLOBIN 30.4 pg (27.0-33.0); MEAN CORPUSCULAR HGB CONC 31.6 g/dl (32.0-36.5); MEAN CORPUSCULAR VOLUME 96.3 fl (80.0-96.0); PLATELET COUNT, AUTOMATED 401 10^3/uL (150-450); RED BLOOD COUNT 2.96 10^6/uL (4.00-5.40); WHITE BLOOD COUNT 12.3 10^3/uL (4.0-10.0)
[2021-08-23] MEDS: ATORVASTATIN 20 MG TAB PO SCH (20:24)
[2021-08-23] MEDS: levETIRAcetam 250MG TABLET (KEPPRA) PO SCH (20:26)
[2021-08-23] MEDS: TOPIRAMATE (TopAMAX) 25 MG TAB PO SCH (20:26)
[2021-08-23 22:00] VITALS: BP 120/68
[2021-08-24 05:09] VITALS: BP 119/66
[2021-08-24 06:44] LABS: HEMATOCRIT 26.3 % (36.0-47.0); HEMOGLOBIN 8.3 g/dl (12.0-15.5); MEAN CORPUSCULAR HEMOGLOBIN 29.4 pg (27.0-33.0); MEAN CORPUSCULAR HGB CONC 31.6 g/dl (32.0-36.5); MEAN CORPUSCULAR VOLUME 93.3 fl (80.0-96.0); PLATELET COUNT, AUTOMATED 398 10^3/uL (150-450); RED BLOOD COUNT 2.82 10^6/uL (4.00-5.40); WHITE BLOOD COUNT 11.6 10^3/uL (4.0-10.0)
[2021-08-24 07:06] LABS: BLOOD UREA NITROGEN 16 MG/DL (7-18); CALCIUM LEVEL 7.6 MG/DL (8.5-10.1); CARBON DIOXIDE LEVEL 23 MEQ/L (21-32); CHLORIDE LEVEL 114 MEQ/L (98-107); CREATININE FOR GFR 0.93 MG/DL (0.55-1.30); GLOMERULAR FILTRATION RATE > 60.0 (>51); GLUCOSE, FASTING 71 MG/DL (70-100); POTASSIUM SERUM 4.2 MEQ/L (3.5-5.1); SODIUM LEVEL 144 MEQ/L (136-145)
[2021-08-24] MEDS: FOLIC ACID 1 MG TAB PO SCH (10:04)
[2021-08-24] MEDS: FLUoxetine 20MG CAP PO SCH (10:04)
[2021-08-24] MEDS: FIDAXOMICIN 200 MG TAB (DIFICID) PO SCH ×2 (10:04→20:03)
[2021-08-24] MEDS: PRAMIPEXOLE 0.25 MG TAB PO SCH ×2 (10:06→20:03)
[2021-08-24] MEDS: VITAMIN D 1,000 INTERNATIONAL UNITS TABLET PO SCH (10:06)
[2021-08-24] MEDS: predniSONE 10 MG TAB PO SCH (10:06)
[2021-08-24] MEDS: PANTOPRAZOLE 40MG TAB (PROTONIX) PO SCH (10:06)
[2021-08-24] MEDS: FAMOTIDINE 20 MG TAB PO SCH ×2 (10:06→20:02)
[2021-08-24] MEDS: TOPIRAMATE (TopAMAX) 100 MG TAB PO SCH ×2 (10:07→20:02)
[2021-08-24] MEDS: POTASSIUM CHLORIDE 10MEQ SR TABLET PO SCH ×2 (10:07→20:03)
[2021-08-24] MEDS: FERROUS SULFATE 325MG TAB PO SCH (10:07)
[2021-08-24] MEDS: MESALAMINE 250 MG CR CAP PO SCH ×4 (10:07→20:02)
[2021-08-24] MEDS: ARMODAFINIL 200 MG PO SCH (10:08)
[2021-08-24] MEDS: LACTOBACILLUS ACIDOPHILUS CAP (BACID) PO SCH ×2 (10:10→18:05)
[2021-08-24] MEDS: LACOSAMIDE 50 MG TAB (VIMPAT) PO SCH ×2 (10:19→20:03)
[2021-08-24] MEDS: ONDANSETRON 4MG ORAL DISINTEGRATING TAB SL PRN ×2 (10:30→20:08)
[2021-08-24] MEDS: ATORVASTATIN 20 MG TAB PO SCH (20:02)
[2021-08-24] MEDS: TOPIRAMATE (TopAMAX) 25 MG TAB PO SCH (20:02)
[2021-08-24] MEDS: levETIRAcetam 250MG TABLET (KEPPRA) PO SCH (20:03)
[2021-08-25 01:43] VITALS: BP 134/74
[2021-08-25 06:06] LABS: HEMOGLOBIN 8.4 g/dl (12.0-15.5); MEAN CORPUSCULAR HEMOGLOBIN 30.3 pg (27.0-33.0); MEAN CORPUSCULAR HGB CONC 32.3 g/dl (32.0-36.5); MEAN CORPUSCULAR VOLUME 93.9 fl (80.0-96.0); PLATELET COUNT, AUTOMATED 396 10^3/uL (150-450); RED BLOOD COUNT 2.77 10^6/uL (4.00-5.40); WHITE BLOOD COUNT 11.9 10^3/uL (4.0-10.0)
[2021-08-25 06:27] LABS: BLOOD UREA NITROGEN 14 MG/DL (7-18); CALCIUM LEVEL 7.4 MG/DL (8.5-10.1); CARBON DIOXIDE LEVEL 22 MEQ/L (21-32); CHLORIDE LEVEL 114 MEQ/L (98-107); CREATININE FOR GFR 0.84 MG/DL (0.55-1.30); GLOMERULAR FILTRATION RATE > 60.0 (>51); GLUCOSE, FASTING 89 MG/DL (70-100); POTASSIUM SERUM 3.6 MEQ/L (3.5-5.1); SODIUM LEVEL 140 MEQ/L (136-145)
[2021-08-25 06:42] VITALS: BP 113/71
[2021-08-25] MEDS: ARMODAFINIL 200 MG PO SCH (10:00)
[2021-08-25] MEDS: TOPIRAMATE (TopAMAX) 100 MG TAB PO SCH ×2 (10:21→21:54)
[2021-08-25] MEDS: FERROUS SULFATE 325MG TAB PO SCH (10:22)
[2021-08-25] MEDS: VITAMIN D 1,000 INTERNATIONAL UNITS TABLET PO SCH (10:22)
[2021-08-25] MEDS: LACTOBACILLUS ACIDOPHILUS CAP (BACID) PO SCH ×2 (10:22→18:55)
[2021-08-25] MEDS: POTASSIUM CHLORIDE 10MEQ SR TABLET PO SCH ×2 (10:22→21:54)
[2021-08-25] MEDS: LACOSAMIDE 50 MG TAB (VIMPAT) PO SCH ×2 (10:22→21:53)
[2021-08-25] MEDS: MESALAMINE 250 MG CR CAP PO SCH ×4 (10:23→21:54)
[2021-08-25] MEDS: FIDAXOMICIN 200 MG TAB (DIFICID) PO SCH ×2 (10:23→21:53)
[2021-08-25] MEDS: FOLIC ACID 1 MG TAB PO SCH (10:24)
[2021-08-25] MEDS: PRAMIPEXOLE 0.25 MG TAB PO SCH ×2 (10:24→21:53)
[2021-08-25] MEDS: FAMOTIDINE 20 MG TAB PO SCH ×2 (10:24→21:53)
[2021-08-25] MEDS: FLUoxetine 20MG CAP PO SCH (10:25)
[2021-08-25 14:00] VITALS: BP 103/66
[2021-08-25] MEDS ORDERED: POLYETHYLENE GLYCOL (MIRALAX) 238GM BOTTLE PO ONE (18:00)
[2021-08-25 18:56] VITALS: BP 115/73
[2021-08-25] MEDS: levETIRAcetam 250MG TABLET (KEPPRA) PO SCH (21:53)
[2021-08-25] MEDS: TOPIRAMATE (TopAMAX) 25 MG TAB PO SCH (21:54)
[2021-08-25] MEDS: ATORVASTATIN 20 MG TAB PO SCH (21:54)
[2021-08-25 22:00] VITALS: BP 118/74
[2021-08-26] MEDS ORDERED: POLYETHYLENE GLYCOL (MIRALAX) 238GM BOTTLE PO ONE (05:00)
[2021-08-26 06:00] VITALS: BP 117/73
[2021-08-26 06:25] LABS: HEMATOCRIT 31.8 % (36.0-47.0); HEMOGLOBIN 10.2 g/dl (12.0-15.5); MEAN CORPUSCULAR HEMOGLOBIN 30.1 pg (27.0-33.0); MEAN CORPUSCULAR HGB CONC 32.1 g/dl (32.0-36.5); MEAN CORPUSCULAR VOLUME 93.8 fl (80.0-96.0); PLATELET COUNT, AUTOMATED 452 10^3/uL (150-450); RED BLOOD COUNT 3.39 10^6/uL (4.00-5.40); WHITE BLOOD COUNT 11.3 10^3/uL (4.0-10.0)
[2021-08-26 06:54] LABS: BLOOD UREA NITROGEN 11 MG/DL (7-18); CALCIUM LEVEL 7.9 MG/DL (8.5-10.1); CARBON DIOXIDE LEVEL 21 MEQ/L (21-32); CHLORIDE LEVEL 114 MEQ/L (98-107); CREATININE FOR GFR 0.79 MG/DL (0.55-1.30); GLOMERULAR FILTRATION RATE > 60.0 (>51); GLUCOSE, FASTING 69 MG/DL (70-100); SODIUM LEVEL 143 MEQ/L (136-145)
[2021-08-26] MEDS: LACTOBACILLUS ACIDOPHILUS CAP (BACID) PO SCH ×2 (08:10→17:58)
[2021-08-26] MEDS: MESALAMINE 250 MG CR CAP PO SCH ×4 (08:10→20:54)
[2021-08-26] MEDS: ARMODAFINIL 200 MG PO SCH (08:10)
[2021-08-26] MEDS: POTASSIUM CHLORIDE 10MEQ SR TABLET PO SCH ×2 (08:10→20:54)
[2021-08-26] MEDS: PRAMIPEXOLE 0.25 MG TAB PO SCH ×2 (08:11→20:54)
[2021-08-26] MEDS: FOLIC ACID 1 MG TAB PO SCH (08:11)
[2021-08-26] MEDS: TOPIRAMATE (TopAMAX) 100 MG TAB PO SCH ×2 (08:11→20:55)
[2021-08-26] MEDS: FAMOTIDINE 20 MG TAB PO SCH ×2 (08:11→20:55)
[2021-08-26] MEDS: VITAMIN D 1,000 INTERNATIONAL UNITS TABLET PO SCH (08:11)
[2021-08-26] MEDS: FLUoxetine 20MG CAP PO SCH (08:11)
[2021-08-26] MEDS: LACOSAMIDE 50 MG TAB (VIMPAT) PO SCH ×2 (08:11→20:55)
[2021-08-26] MEDS: FERROUS SULFATE 325MG TAB PO SCH (09:00)
[2021-08-26 09:14] LABS: HEPATITIS B SURFACE ANTIGEN NEGATIVE (NEGATIVE)
[2021-08-26 14:00] VITALS: BP 116/72
[2021-08-26] MEDS ORDERED: FECAL MICROBIOTA PREPARATION 250 ML BTL (J3590) XX ONE (15:30)
[2021-08-26 17:03] LABS: MAGNESIUM LEVEL 1.7 MG/DL (1.8-2.4)
[2021-08-26] MEDS: methylPREDNISolone 40MG 1ML VIAL IV SCH (17:58)
[2021-08-26] MEDS: ATORVASTATIN 20 MG TAB PO SCH (20:54)
[2021-08-26] MEDS: levETIRAcetam 250MG TABLET (KEPPRA) PO SCH (20:55)
[2021-08-26] MEDS: TOPIRAMATE (TopAMAX) 25 MG TAB PO SCH (20:55)
[2021-08-27 02:23] VITALS: BP 121/74
[2021-08-27 05:21] VITALS: BP 117/62
[2021-08-27] MEDS: ACETAMINOPHEN TAB 650MG DOSE (2X325MG) PO PRN (05:32)
[2021-08-27 06:09] LABS: HEMOGLOBIN 9.1 g/dl (12.0-15.5); MEAN CORPUSCULAR HEMOGLOBIN 29.5 pg (27.0-33.0); MEAN CORPUSCULAR HGB CONC 31.4 g/dl (32.0-36.5); MEAN CORPUSCULAR VOLUME 94.2 fl (80.0-96.0); PLATELET COUNT, AUTOMATED 447 10^3/uL (150-450); RED BLOOD COUNT 3.08 10^6/uL (4.00-5.40); WHITE BLOOD COUNT 13.5 10^3/uL (4.0-10.0)
[2021-08-27 06:32] LABS: BLOOD UREA NITROGEN 11 MG/DL (7-18); CALCIUM LEVEL 7.4 MG/DL (8.5-10.1); CARBON DIOXIDE LEVEL 21 MEQ/L (21-32); CHLORIDE LEVEL 115 MEQ/L (98-107); GLOMERULAR FILTRATION RATE > 60.0 (>51); GLUCOSE, FASTING 76 MG/DL (70-100); POTASSIUM SERUM 3.8 MEQ/L (3.5-5.1); SODIUM LEVEL 142 MEQ/L (136-145)
[2021-08-27] MEDS: LACOSAMIDE 50 MG TAB (VIMPAT) PO SCH ×2 (08:39→20:51)
[2021-08-27] MEDS: TOPIRAMATE (TopAMAX) 100 MG TAB PO SCH ×2 (08:39→20:53)
[2021-08-27] MEDS: ARMODAFINIL 200 MG PO SCH (08:39)
[2021-08-27] MEDS: PRAMIPEXOLE 0.25 MG TAB PO SCH ×2 (08:39→20:52)
[2021-08-27] MEDS: FAMOTIDINE 20 MG TAB PO SCH ×2 (08:40→20:52)
[2021-08-27] MEDS: FOLIC ACID 1 MG TAB PO SCH (08:40)
[2021-08-27] MEDS: FERROUS SULFATE 325MG TAB PO SCH (08:40)
[2021-08-27] MEDS: VITAMIN D 1,000 INTERNATIONAL UNITS TABLET PO SCH (08:40)
[2021-08-27] MEDS: MESALAMINE 250 MG CR CAP PO SCH ×4 (08:40→20:51)
[2021-08-27] MEDS: LACTOBACILLUS ACIDOPHILUS CAP (BACID) PO SCH ×2 (08:40→17:18)
[2021-08-27] MEDS: FLUoxetine 20MG CAP PO SCH (08:40)
[2021-08-27] MEDS: POTASSIUM CHLORIDE 10MEQ SR TABLET PO SCH ×2 (08:40→20:52)
[2021-08-27 14:00] VITALS: BP 102/64
[2021-08-27] MEDS: methylPREDNISolone 40MG 1ML VIAL IV SCH (17:18)
[2021-08-27 18:00] VITALS: BP 120/78
[2021-08-27] MEDS: ATORVASTATIN 20 MG TAB PO SCH (20:51)
[2021-08-27] MEDS: levETIRAcetam 250MG TABLET (KEPPRA) PO SCH (20:51)
[2021-08-27] MEDS: TOPIRAMATE (TopAMAX) 25 MG TAB PO SCH (20:53)
[2021-08-28 05:59] VITALS: BP 117/76
[2021-08-28 06:32] LABS: HEMATOCRIT 25.7 % (36.0-47.0); HEMOGLOBIN 8.1 g/dl (12.0-15.5); MEAN CORPUSCULAR HGB CONC 31.5 g/dl (32.0-36.5); MEAN CORPUSCULAR VOLUME 95.2 fl (80.0-96.0); PLATELET COUNT, AUTOMATED 372 10^3/uL (150-450)
[2021-08-28 06:57] LABS: BLOOD UREA NITROGEN 12 MG/DL (7-18); CALCIUM LEVEL 7.4 MG/DL (8.5-10.1); CARBON DIOXIDE LEVEL 18 MEQ/L (21-32); CHLORIDE LEVEL 118 MEQ/L (98-107); CREATININE FOR GFR 0.78 MG/DL (0.55-1.30); GLOMERULAR FILTRATION RATE > 60.0 (>51); GLUCOSE, FASTING 96 MG/DL (70-100); POTASSIUM SERUM 3.7 MEQ/L (3.5-5.1); SODIUM LEVEL 143 MEQ/L (136-145)
[2021-08-28] MEDS: LACOSAMIDE 50 MG TAB (VIMPAT) PO SCH ×2 (09:33→20:46)
[2021-08-28] MEDS: FERROUS SULFATE 325MG TAB PO SCH (09:33)
[2021-08-28] MEDS: FOLIC ACID 1 MG TAB PO SCH (09:33)
[2021-08-28] MEDS: LACTOBACILLUS ACIDOPHILUS CAP (BACID) PO SCH ×2 (09:33→18:30)
[2021-08-28] MEDS: PRAMIPEXOLE 0.25 MG TAB PO SCH ×2 (09:33→20:47)
[2021-08-28] MEDS: FAMOTIDINE 20 MG TAB PO SCH ×2 (09:33→20:48)
[2021-08-28] MEDS: TOPIRAMATE (TopAMAX) 100 MG TAB PO SCH ×2 (09:33→20:46)
[2021-08-28] MEDS: VITAMIN D 1,000 INTERNATIONAL UNITS TABLET PO SCH (09:33)
[2021-08-28] MEDS: FLUoxetine 20MG CAP PO SCH (09:33)
[2021-08-28] MEDS: MESALAMINE 250 MG CR CAP PO SCH ×2 (09:33→13:12)
[2021-08-28] MEDS: POTASSIUM CHLORIDE 10MEQ SR TABLET PO SCH ×2 (09:34→20:45)
[2021-08-28] MEDS: ARMODAFINIL 200 MG PO SCH (10:07)
[2021-08-28 14:00] VITALS: BP 114/76
[2021-08-28] MEDS ORDERED: SALIVA SUBSTITUTE(MOUTHKOTE) BTL MT PRN (15:25)
[2021-08-28] MEDS: methylPREDNISolone 40MG 1ML VIAL IV SCH (18:30)
[2021-08-28 18:48] VITALS: BP 113/66
[2021-08-28] MEDS: TOPIRAMATE (TopAMAX) 25 MG TAB PO SCH (20:46)
[2021-08-28] MEDS: levETIRAcetam 250MG TABLET (KEPPRA) PO SCH (20:47)
[2021-08-28] MEDS: ATORVASTATIN 20 MG TAB PO SCH (20:48)
[2021-08-29 05:59] VITALS: BP 109/65
[2021-08-29 08:40] LABS: BASO % 0.1 % (0.0-1.0); EOS # 0.1 10^3/uL (0.0-0.5); EOS % 0.6 % (0.0-3.0); LYMPH # 1.4 10^3/uL (1.5-5.0); LYMPH % 12.5 % (24.0-44.0); MEAN CORPUSCULAR HEMOGLOBIN 31.1 pg (27.0-33.0); MEAN CORPUSCULAR HGB CONC 32.4 g/dl (32.0-36.5); MEAN CORPUSCULAR VOLUME 95.9 fl (80.0-96.0); MONO # 0.5 10^3/uL (0.0-0.8); MONO % 4.2 % (2.0-8.0); NEUTROPHILS # 8.9 10^3/uL (1.5-8.5); NEUTROPHILS % 81.6 % (36.0-66.0); PLATELET COUNT, AUTOMATED 501 10^3/uL (150-450); RED BLOOD COUNT 3.44 10^6/uL (4.00-5.40); WHITE BLOOD COUNT 10.8 10^3/uL (4.0-10.0)
[2021-08-29] MEDS: FLUoxetine 20MG CAP PO SCH (08:46)
[2021-08-29] MEDS: ARMODAFINIL 200 MG PO SCH (08:46)
[2021-08-29] MEDS: POTASSIUM CHLORIDE 10MEQ SR TABLET PO SCH ×2 (08:46→22:33)
[2021-08-29] MEDS: VITAMIN D 1,000 INTERNATIONAL UNITS TABLET PO SCH (08:46)
[2021-08-29] MEDS: FERROUS SULFATE 325MG TAB PO SCH (08:46)
[2021-08-29] MEDS: LACOSAMIDE 50 MG TAB (VIMPAT) PO SCH ×2 (08:46→22:32)
[2021-08-29] MEDS: LACTOBACILLUS ACIDOPHILUS CAP (BACID) PO SCH ×2 (08:46→17:33)
[2021-08-29] MEDS: TOPIRAMATE (TopAMAX) 100 MG TAB PO SCH ×2 (08:47→22:44)
[2021-08-29] MEDS: PRAMIPEXOLE 0.25 MG TAB PO SCH ×2 (08:47→22:45)
[2021-08-29] MEDS: FAMOTIDINE 20 MG TAB PO SCH ×2 (08:47→22:33)
[2021-08-29] MEDS: FOLIC ACID 1 MG TAB PO SCH (08:47)
[2021-08-29 08:54] LABS: HEMOGLOBIN 10.7 g/dl (12.0-15.5)
[2021-08-29 09:09] LABS: ALBUMIN 1.3 GM/DL (3.2-5.2); ALT/SGPT 36 U/L (12-78); BILIRUBIN,TOTAL 0.2 MG/DL (0.2-1.0); BLOOD UREA NITROGEN 11 MG/DL (7-18); CARBON DIOXIDE LEVEL 18 MEQ/L (21-32); CHLORIDE LEVEL 117 MEQ/L (98-107); CREATININE FOR GFR 0.67 MG/DL (0.55-1.30); GLOMERULAR FILTRATION RATE > 60.0 (>51); GLUCOSE, FASTING 81 MG/DL (70-100); POTASSIUM SERUM 3.4 MEQ/L (3.5-5.1); SODIUM LEVEL 143 MEQ/L (136-145); TOTAL PROTEIN 4.4 GM/DL (6.4-8.2)
[2021-08-29] MEDS ORDERED: NS 1,000 ML IV SCH (10:40)
[2021-08-29] MEDS ORDERED: VEDOLIZUMAB 300 MG in NS 250 ML IV ONE (12:00)
[2021-08-29] MEDS ORDERED: diphenhydrAMINE 25MG CAP PO ONE (12:00)
[2021-08-29] MEDS ORDERED: ACETAMINOPHEN TAB 650MG DOSE (2X325MG) PO ONE (12:00)
[2021-08-29 14:00] VITALS: BP 109/67
[2021-08-29] MEDS: methylPREDNISolone 40MG 1ML VIAL IV SCH (17:33)
[2021-08-29 18:00] VITALS: BP 111/68
[2021-08-29] MEDS: ATORVASTATIN 20 MG TAB PO SCH (22:33)
[2021-08-29] MEDS: levETIRAcetam 250MG TABLET (KEPPRA) PO SCH (22:34)
[2021-08-29] MEDS: TOPIRAMATE (TopAMAX) 25 MG TAB PO SCH (22:44)
[2021-08-30] MEDS ORDERED: NS 1,000 ML IV SCH (03:10)
[2021-08-30 05:33] VITALS: BP 101/59
[2021-08-30 06:36] LABS: HEMATOCRIT 27.9 % (36.0-47.0); MEAN CORPUSCULAR HEMOGLOBIN 30.2 pg (27.0-33.0); MEAN CORPUSCULAR HGB CONC 31.2 g/dl (32.0-36.5); MEAN CORPUSCULAR VOLUME 96.9 fl (80.0-96.0); RED BLOOD COUNT 2.88 10^6/uL (4.00-5.40); WHITE BLOOD COUNT 11.3 10^3/uL (4.0-10.0)
[2021-08-30 07:00] LABS: HEMOGLOBIN 8.7 g/dl (12.0-15.5); PLATELET COUNT, AUTOMATED 382 10^3/uL (150-450)
[2021-08-30 07:01] LABS: BLOOD UREA NITROGEN 9 MG/DL (7-18); CALCIUM LEVEL 7.2 MG/DL (8.5-10.1); CARBON DIOXIDE LEVEL 18 MEQ/L (21-32); CHLORIDE LEVEL 115 MEQ/L (98-107); CREATININE FOR GFR 0.63 MG/DL (0.55-1.30); GLOMERULAR FILTRATION RATE > 60.0 (>51); GLUCOSE, FASTING 149 MG/DL (70-100); SODIUM LEVEL 140 MEQ/L (136-145)
[2021-08-30 08:05] LABS: LYMPHOCYTES 6 % (16-44); NEUTROPHILS 85 % (28-66); PLATELET ESTIMATE NORMAL (NORMAL); TOXIC GRANULATION 1+
[2021-08-30 08:06] LABS: ANISOCYTOSIS 1+
[2021-08-30] MEDS: LACTOBACILLUS ACIDOPHILUS CAP (BACID) PO SCH ×2 (09:08→18:28)
[2021-08-30] MEDS: LACOSAMIDE 50 MG TAB (VIMPAT) PO SCH ×2 (09:08→20:55)
[2021-08-30] MEDS: FERROUS SULFATE 325MG TAB PO SCH (09:08)
[2021-08-30] MEDS: POTASSIUM CHLORIDE 10MEQ SR TABLET PO SCH ×2 (09:09→20:57)
[2021-08-30] MEDS: TOPIRAMATE (TopAMAX) 100 MG TAB PO SCH ×2 (09:10→20:56)
[2021-08-30] MEDS: FLUoxetine 20MG CAP PO SCH (09:10)
[2021-08-30] MEDS: FAMOTIDINE 20 MG TAB PO SCH ×2 (09:10→20:57)
[2021-08-30] MEDS: PRAMIPEXOLE 0.25 MG TAB PO SCH ×2 (09:10→20:56)
[2021-08-30] MEDS: FOLIC ACID 1 MG TAB PO SCH (09:11)
[2021-08-30] MEDS: VITAMIN D 1,000 INTERNATIONAL UNITS TABLET PO SCH (09:11)
[2021-08-30] MEDS: ARMODAFINIL 200 MG PO SCH (09:15)
[2021-08-30 14:00] VITALS: BP 101/62
[2021-08-30] MEDS: MESALAMINE 250 MG CR CAP PO SCH ×2 (14:49→22:41)
[2021-08-30] MEDS: methylPREDNISolone 40MG 1ML VIAL IV SCH (18:28)
[2021-08-30] MEDS ORDERED: KETOROLAC TROMETHAMINE 10 MG TAB PO ONE (18:55)
[2021-08-30 20:31] VITALS: BP 106/62
[2021-08-30] MEDS: TOPIRAMATE (TopAMAX) 25 MG TAB PO SCH (20:56)
[2021-08-30] MEDS: levETIRAcetam 250MG TABLET (KEPPRA) PO SCH (20:56)
[2021-08-30] MEDS: ATORVASTATIN 20 MG TAB PO SCH (20:57)
[2021-08-30 22:00] VITALS: BP 113/74
[2021-08-31] VITALS (10 sets, daily range): BP systolic 104–122; BP diastolic 58–80
[2021-08-31] MEDS: MESALAMINE 250 MG CR CAP PO SCH ×3 (05:09→22:35)
[2021-08-31 06:36] LABS: BASO % 0.2 % (0.0-1.0); EOS # 0.1 10^3/uL (0.0-0.5); EOS % 0.9 % (0.0-3.0); HEMATOCRIT 25.2 % (36.0-47.0); HEMOGLOBIN 7.7 g/dl (12.0-15.5); LYMPH # 0.9 10^3/uL (1.5-5.0); MEAN CORPUSCULAR HEMOGLOBIN 29.3 pg (27.0-33.0); MEAN CORPUSCULAR HGB CONC 30.6 g/dl (32.0-36.5); MEAN CORPUSCULAR VOLUME 95.8 fl (80.0-96.0); MONO # 0.4 10^3/uL (0.0-0.8); MONO % 2.7 % (2.0-8.0); NEUTROPHILS # 11.5 10^3/uL (1.5-8.5); NEUTROPHILS % 88.6 % (36.0-66.0); PLATELET COUNT, AUTOMATED 376 10^3/uL (150-450); RED BLOOD COUNT 2.63 10^6/uL (4.00-5.40); WHITE BLOOD COUNT 12.9 10^3/uL (4.0-10.0)
[2021-08-31 06:55] LABS: BLOOD UREA NITROGEN 9 MG/DL (7-18); CALCIUM LEVEL 7.1 MG/DL (8.5-10.1); CARBON DIOXIDE LEVEL 18 MEQ/L (21-32); CHLORIDE LEVEL 118 MEQ/L (98-107); CREATININE FOR GFR 0.65 MG/DL (0.55-1.30); GLOMERULAR FILTRATION RATE > 60.0 (>51); GLUCOSE, FASTING 67 MG/DL (70-100); POTASSIUM SERUM 3.4 MEQ/L (3.5-5.1); SODIUM LEVEL 143 MEQ/L (136-145)
[2021-08-31] MEDS: LACTOBACILLUS ACIDOPHILUS CAP (BACID) PO SCH ×2 (08:59→18:03)
[2021-08-31] MEDS ORDERED: CALCIUM GLUCONATE 1,000 MG in D5W MINI-BAG PLUS 100 ML IV ONE (09:00)
[2021-08-31] MEDS: POTASSIUM CHLORIDE 10MEQ SR TABLET PO SCH ×2 (09:01→20:22)
[2021-08-31] MEDS: VITAMIN D 1,000 INTERNATIONAL UNITS TABLET PO SCH (09:01)
[2021-08-31] MEDS: FOLIC ACID 1 MG TAB PO SCH (09:01)
[2021-08-31] MEDS: FLUoxetine 20MG CAP PO SCH (09:01)
[2021-08-31] MEDS: PRAMIPEXOLE 0.25 MG TAB PO SCH ×2 (09:01→20:15)
[2021-08-31] MEDS: TOPIRAMATE (TopAMAX) 100 MG TAB PO SCH ×2 (09:02→20:16)
[2021-08-31] MEDS: LACOSAMIDE 50 MG TAB (VIMPAT) PO SCH ×2 (09:02→20:16)
[2021-08-31] MEDS: FAMOTIDINE 20 MG TAB PO SCH ×2 (09:02→20:16)
[2021-08-31] MEDS: FERROUS SULFATE 325MG TAB PO SCH (09:02)
[2021-08-31] MEDS: ARMODAFINIL 200 MG PO SCH (09:06)
[2021-08-31] MEDS: ONDANSETRON 4MG ORAL DISINTEGRATING TAB SL PRN (13:34)
[2021-08-31] MEDS: methylPREDNISolone 40MG 1ML VIAL IV SCH (18:03)
[2021-08-31] MEDS: levETIRAcetam 250MG TABLET (KEPPRA) PO SCH (20:15)
[2021-08-31] MEDS: ATORVASTATIN 20 MG TAB PO SCH (20:15)
[2021-08-31] MEDS: TOPIRAMATE (TopAMAX) 25 MG TAB PO SCH (20:16)
[2021-09-01] MEDS: MESALAMINE 250 MG CR CAP PO SCH ×3 (06:34→21:03)
[2021-09-01 06:40] VITALS: BP 100/68
[2021-09-01] MEDS: FERROUS SULFATE 325MG TAB PO SCH (08:19)
[2021-09-01] MEDS: FLUoxetine 20MG CAP PO SCH (08:19)
[2021-09-01] MEDS: LACTOBACILLUS ACIDOPHILUS CAP (BACID) PO SCH ×2 (08:19→18:04)
[2021-09-01] MEDS: FAMOTIDINE 20 MG TAB PO SCH ×2 (08:19→20:57)
[2021-09-01] MEDS: PRAMIPEXOLE 0.25 MG TAB PO SCH ×2 (08:20→20:57)
[2021-09-01] MEDS: TOPIRAMATE (TopAMAX) 100 MG TAB PO SCH ×2 (08:20→20:56)
[2021-09-01] MEDS: FOLIC ACID 1 MG TAB PO SCH (08:20)
[2021-09-01] MEDS: VITAMIN D 1,000 INTERNATIONAL UNITS TABLET PO SCH (08:20)
[2021-09-01] MEDS: LACOSAMIDE 50 MG TAB (VIMPAT) PO SCH ×2 (08:20→20:56)
[2021-09-01] MEDS: POTASSIUM CHLORIDE 10MEQ SR TABLET PO SCH ×3 (08:20→20:56)
[2021-09-01] MEDS: ARMODAFINIL 200 MG PO SCH (08:22)
[2021-09-01 08:44] LABS: BASO % 0.1 % (0.0-1.0); EOS # 0.1 10^3/uL (0.0-0.5); EOS % 0.6 % (0.0-3.0); HEMATOCRIT 33.5 % (36.0-47.0); MEAN CORPUSCULAR HEMOGLOBIN 29.1 pg (27.0-33.0); MEAN CORPUSCULAR HGB CONC 31.9 g/dl (32.0-36.5); MONO # 0.3 10^3/uL (0.0-0.8); MONO % 2.4 % (2.0-8.0); NEUTROPHILS # 12.5 10^3/uL (1.5-8.5); NEUTROPHILS % 89.5 % (36.0-66.0); PLATELET COUNT, AUTOMATED 395 10^3/uL (150-450); RED BLOOD COUNT 3.68 10^6/uL (4.00-5.40)
[2021-09-01 09:06] LABS: HEMOGLOBIN 10.7 g/dl (12.0-15.5)
[2021-09-01 09:14] LABS: BLOOD UREA NITROGEN 9 MG/DL (7-18); CALCIUM LEVEL 7.9 MG/DL (8.5-10.1); CARBON DIOXIDE LEVEL 19 MEQ/L (21-32); CHLORIDE LEVEL 118 MEQ/L (98-107); CREATININE FOR GFR 0.64 MG/DL (0.55-1.30); GLOMERULAR FILTRATION RATE > 60.0 (>51); GLUCOSE, FASTING 65 MG/DL (70-100); POTASSIUM SERUM 4.1 MEQ/L (3.5-5.1); SODIUM LEVEL 143 MEQ/L (136-145)
[2021-09-01 14:00] VITALS: BP 116/70
[2021-09-01] MEDS: methylPREDNISolone 40MG 1ML VIAL IV SCH (18:04)
[2021-09-01] MEDS: ATORVASTATIN 20 MG TAB PO SCH (20:55)
[2021-09-01] MEDS: levETIRAcetam 250MG TABLET (KEPPRA) PO SCH (20:55)
[2021-09-01] MEDS: TOPIRAMATE (TopAMAX) 25 MG TAB PO SCH (20:56)
[2021-09-01 21:00] VITALS: BP 109/72
[2021-09-02 05:21] LABS: BASO % 0.1 % (0.0-1.0); EOS # 0.1 10^3/uL (0.0-0.5); EOS % 0.5 % (0.0-3.0); HEMATOCRIT 31.2 % (36.0-47.0); HEMOGLOBIN 9.9 g/dl (12.0-15.5); LYMPH % 7.6 % (24.0-44.0); MEAN CORPUSCULAR HEMOGLOBIN 29.2 pg (27.0-33.0); MEAN CORPUSCULAR HGB CONC 31.7 g/dl (32.0-36.5); MONO # 0.3 10^3/uL (0.0-0.8); MONO % 2.7 % (2.0-8.0); NEUTROPHILS # 11.3 10^3/uL (1.5-8.5); NEUTROPHILS % 88.5 % (36.0-66.0); PLATELET COUNT, AUTOMATED 355 10^3/uL (150-450); RED BLOOD COUNT 3.39 10^6/uL (4.00-5.40); WHITE BLOOD COUNT 12.7 10^3/uL (4.0-10.0)
[2021-09-02 05:43] LABS: BLOOD UREA NITROGEN 10 MG/DL (7-18); CALCIUM LEVEL 7.6 MG/DL (8.5-10.1); CARBON DIOXIDE LEVEL 19 MEQ/L (21-32); CHLORIDE LEVEL 119 MEQ/L (98-107); CREATININE FOR GFR 0.59 MG/DL (0.55-1.30); GLOMERULAR FILTRATION RATE > 60.0 (>51); GLUCOSE, FASTING 73 MG/DL (70-100); POTASSIUM SERUM 3.8 MEQ/L (3.5-5.1); SODIUM LEVEL 143 MEQ/L (136-145)
[2021-09-02 06:40] VITALS: BP 115/73
[2021-09-02] MEDS: MESALAMINE 250 MG CR CAP PO SCH ×3 (06:53→21:17)
[2021-09-02] MEDS: POTASSIUM CHLORIDE 10MEQ SR TABLET PO SCH ×2 (09:52→21:18)
[2021-09-02] MEDS: FERROUS SULFATE 325MG TAB PO SCH (09:52)
[2021-09-02] MEDS: LACOSAMIDE 50 MG TAB (VIMPAT) PO SCH ×2 (09:52→21:18)
[2021-09-02] MEDS: VITAMIN D 1,000 INTERNATIONAL UNITS TABLET PO SCH (09:52)
[2021-09-02] MEDS: PRAMIPEXOLE 0.25 MG TAB PO SCH ×2 (09:58→21:19)
[2021-09-02] MEDS: ARMODAFINIL 200 MG PO SCH (09:58)
[2021-09-02] MEDS: TOPIRAMATE (TopAMAX) 100 MG TAB PO SCH ×2 (09:58→21:18)
[2021-09-02] MEDS: FOLIC ACID 1 MG TAB PO SCH (09:59)
[2021-09-02] MEDS: FLUoxetine 20MG CAP PO SCH (09:59)
[2021-09-02] MEDS: LACTOBACILLUS ACIDOPHILUS CAP (BACID) PO SCH ×2 (09:59→18:04)
[2021-09-02] MEDS: FAMOTIDINE 20 MG TAB PO SCH ×2 (09:59→21:19)
[2021-09-02 14:00] VITALS: BP 108/73
[2021-09-02] MEDS: methylPREDNISolone 40MG 1ML VIAL IV SCH (18:04)
[2021-09-02 20:00] VITALS: BP 97/69
[2021-09-02] MEDS: TOPIRAMATE (TopAMAX) 25 MG TAB PO SCH (21:18)
[2021-09-02] MEDS: ATORVASTATIN 20 MG TAB PO SCH (21:19)
[2021-09-02] MEDS: levETIRAcetam 250MG TABLET (KEPPRA) PO SCH (21:19)
[2021-09-03] MEDS: MESALAMINE 250 MG CR CAP PO SCH ×3 (05:26→20:10)
[2021-09-03 05:59] VITALS: BP 122/73
[2021-09-03 06:22] LABS: BASO % 0.1 % (0.0-1.0); EOS # 0.1 10^3/uL (0.0-0.5); EOS % 0.6 % (0.0-3.0); HEMATOCRIT 31.3 % (36.0-47.0); HEMOGLOBIN 10.1 g/dl (12.0-15.5); LYMPH # 1.1 10^3/uL (1.5-5.0); MEAN CORPUSCULAR HEMOGLOBIN 29.7 pg (27.0-33.0); MEAN CORPUSCULAR HGB CONC 32.3 g/dl (32.0-36.5); MEAN CORPUSCULAR VOLUME 92.1 fl (80.0-96.0); MONO # 0.4 10^3/uL (0.0-0.8); MONO % 3.2 % (2.0-8.0); NEUTROPHILS # 10.7 10^3/uL (1.5-8.5); NEUTROPHILS % 86.5 % (36.0-66.0); PLATELET COUNT, AUTOMATED 339 10^3/uL (150-450); WHITE BLOOD COUNT 12.4 10^3/uL (4.0-10.0)
[2021-09-03 06:51] LABS: BLOOD UREA NITROGEN 12 MG/DL (7-18); CALCIUM LEVEL 7.4 MG/DL (8.5-10.1); CARBON DIOXIDE LEVEL 20 MEQ/L (21-32); CHLORIDE LEVEL 117 MEQ/L (98-107); GLOMERULAR FILTRATION RATE > 60.0 (>51); GLUCOSE, FASTING 80 MG/DL (70-100); POTASSIUM SERUM 3.6 MEQ/L (3.5-5.1); SODIUM LEVEL 142 MEQ/L (136-145)
[2021-09-03] MEDS: POTASSIUM CHLORIDE 10MEQ SR TABLET PO SCH ×2 (08:32→20:10)
[2021-09-03] MEDS: ARMODAFINIL 200 MG PO SCH (08:32)
[2021-09-03] MEDS: TOPIRAMATE (TopAMAX) 100 MG TAB PO SCH ×2 (08:33→20:09)
[2021-09-03] MEDS: LACOSAMIDE 50 MG TAB (VIMPAT) PO SCH ×2 (08:33→20:09)
[2021-09-03] MEDS: FAMOTIDINE 20 MG TAB PO SCH ×2 (08:33→20:09)
[2021-09-03] MEDS: FLUoxetine 20MG CAP PO SCH (08:33)
[2021-09-03] MEDS: VITAMIN D 1,000 INTERNATIONAL UNITS TABLET PO SCH (08:33)
[2021-09-03] MEDS: FOLIC ACID 1 MG TAB PO SCH (08:33)
[2021-09-03] MEDS: LACTOBACILLUS ACIDOPHILUS CAP (BACID) PO SCH ×2 (08:33→20:10)
[2021-09-03] MEDS: FERROUS SULFATE 325MG TAB PO SCH (08:33)
[2021-09-03] MEDS: PRAMIPEXOLE 0.25 MG TAB PO SCH ×2 (08:33→20:10)
[2021-09-03] MEDS: ONDANSETRON 4MG ORAL DISINTEGRATING TAB SL PRN (10:03)
[2021-09-03 14:00] VITALS: BP 102/65
[2021-09-03 19:10] VITALS: BP 102/67
[2021-09-03] MEDS: TOPIRAMATE (TopAMAX) 25 MG TAB PO SCH (20:09)
[2021-09-03] MEDS: ATORVASTATIN 20 MG TAB PO SCH (20:09)
[2021-09-03] MEDS: methylPREDNISolone 40MG 1ML VIAL IV SCH (20:10)
[2021-09-03] MEDS: levETIRAcetam 250MG TABLET (KEPPRA) PO SCH (20:10)
[2021-09-04] VITALS (9 sets, daily range): BP systolic 101–126; BP diastolic 58–82
[2021-09-04] MEDS: MESALAMINE 250 MG CR CAP PO SCH ×3 (05:37→20:46)
[2021-09-04 06:27] LABS: HEMATOCRIT 29.5 % (36.0-47.0); HEMOGLOBIN 9.6 g/dl (12.0-15.5); MEAN CORPUSCULAR HEMOGLOBIN 29.6 pg (27.0-33.0); MEAN CORPUSCULAR HGB CONC 32.5 g/dl (32.0-36.5); PLATELET COUNT, AUTOMATED 362 10^3/uL (150-450); RED BLOOD COUNT 3.24 10^6/uL (4.00-5.40); WHITE BLOOD COUNT 8.2 10^3/uL (4.0-10.0)
[2021-09-04 06:57] LABS: BLOOD UREA NITROGEN 23 MG/DL (7-18); CALCIUM LEVEL 7.6 MG/DL (8.5-10.1); CARBON DIOXIDE LEVEL 20 MEQ/L (21-32); CHLORIDE LEVEL 116 MEQ/L (98-107); CREATININE FOR GFR 0.52 MG/DL (0.55-1.30); GLOMERULAR FILTRATION RATE > 60.0 (>51); GLUCOSE, FASTING 72 MG/DL (70-100); POTASSIUM SERUM 4.1 MEQ/L (3.5-5.1); SODIUM LEVEL 144 MEQ/L (136-145)
[2021-09-04] MEDS ORDERED: propofoL 200 MG/20 ML VIAL As Ordered ONE (07:23)
[2021-09-04] MEDS ORDERED: LIDOCAINE 2% JELLY 5ML TUBE As Ordered ONE (07:23)
[2021-09-04] MEDS: PRAMIPEXOLE 0.25 MG TAB PO SCH ×2 (08:48→20:45)
[2021-09-04] MEDS: FOLIC ACID 1 MG TAB PO SCH (08:48)
[2021-09-04] MEDS: VITAMIN D 1,000 INTERNATIONAL UNITS TABLET PO SCH (08:48)
[2021-09-04] MEDS: FERROUS SULFATE 325MG TAB PO SCH (08:48)
[2021-09-04] MEDS: FAMOTIDINE 20 MG TAB PO SCH ×2 (08:48→20:46)
[2021-09-04] MEDS: FLUoxetine 20MG CAP PO SCH (08:49)
[2021-09-04] MEDS: LACTOBACILLUS ACIDOPHILUS CAP (BACID) PO SCH ×2 (08:49→18:17)
[2021-09-04] MEDS: POTASSIUM CHLORIDE 10MEQ SR TABLET PO SCH ×2 (08:49→20:46)
[2021-09-04] MEDS: TOPIRAMATE (TopAMAX) 100 MG TAB PO SCH ×2 (08:49→20:45)
[2021-09-04] MEDS: LACOSAMIDE 50 MG TAB (VIMPAT) PO SCH ×2 (08:49→20:46)
[2021-09-04] MEDS: ARMODAFINIL 200 MG PO SCH (08:50)
[2021-09-04] MEDS ORDERED: GLUCAGON INJ 1MG VIAL SC PRN (12:20)
[2021-09-04] MEDS ORDERED: GLUCOSE 4GM CHEW TABLET PO PRN (12:20)
[2021-09-04] MEDS ORDERED: DEXTROSE 50% 50 ML SYRINGE IV PRN (12:20)
[2021-09-04] MEDS: D5W/0.45% SODIUM CHLORIDE 1,000 ML IV SCH (12:37)
[2021-09-04] MEDS ORDERED: FECAL MICROBIOTA PREPARATION 30 ML BTL (J3590) XX ONE (14:00)
[2021-09-04] MEDS ORDERED: FECAL MICROBIOTA PREPARATION 30 ML BTL (J3590) XX SCH (14:00)
[2021-09-04] MEDS ORDERED: CREON-24 CAPSULE PO PRN (16:30)
[2021-09-04] MEDS: methylPREDNISolone 40MG 1ML VIAL IV SCH (18:17)
[2021-09-04] MEDS: CREON-24 CAPSULE PO SCH (18:24)
[2021-09-04] MEDS: TOPIRAMATE (TopAMAX) 25 MG TAB PO SCH (20:45)
[2021-09-04] MEDS: levETIRAcetam 250MG TABLET (KEPPRA) PO SCH (20:45)
[2021-09-04] MEDS: ATORVASTATIN 20 MG TAB PO SCH (20:47)
[2021-09-05] MEDS: D5W/0.45% SODIUM CHLORIDE 1,000 ML IV SCH (01:23)
[2021-09-05 02:00] VITALS: BP 125/82
[2021-09-05] MEDS: MESALAMINE 250 MG CR CAP PO SCH ×3 (05:40→20:25)
[2021-09-05 06:00] VITALS: BP 136/89
[2021-09-05 06:42] LABS: HEMATOCRIT 29.7 % (36.0-47.0); HEMOGLOBIN 9.7 g/dl (12.0-15.5); MEAN CORPUSCULAR HEMOGLOBIN 29.9 pg (27.0-33.0); MEAN CORPUSCULAR HGB CONC 32.7 g/dl (32.0-36.5); MEAN CORPUSCULAR VOLUME 91.7 fl (80.0-96.0); PLATELET COUNT, AUTOMATED 350 10^3/uL (150-450); RED BLOOD COUNT 3.24 10^6/uL (4.00-5.40); WHITE BLOOD COUNT 10.5 10^3/uL (4.0-10.0)
[2021-09-05 07:13] LABS: BLOOD UREA NITROGEN 16 MG/DL (7-18); CARBON DIOXIDE LEVEL 21 MEQ/L (21-32); CHLORIDE LEVEL 115 MEQ/L (98-107); CREATININE FOR GFR 0.54 MG/DL (0.55-1.30); GLOMERULAR FILTRATION RATE > 60.0 (>51); GLUCOSE, FASTING 87 MG/DL (70-100); POTASSIUM SERUM 3.7 MEQ/L (3.5-5.1); SODIUM LEVEL 141 MEQ/L (136-145)
[2021-09-05] MEDS: PRAMIPEXOLE 0.25 MG TAB PO SCH ×2 (09:14→20:25)
[2021-09-05] MEDS: LACOSAMIDE 50 MG TAB (VIMPAT) PO SCH ×2 (09:14→20:25)
[2021-09-05] MEDS: FAMOTIDINE 20 MG TAB PO SCH ×2 (09:14→20:26)
[2021-09-05] MEDS: FLUoxetine 20MG CAP PO SCH (09:14)
[2021-09-05] MEDS: FOLIC ACID 1 MG TAB PO SCH (09:14)
[2021-09-05] MEDS: LACTOBACILLUS ACIDOPHILUS CAP (BACID) PO SCH ×2 (09:14→17:52)
[2021-09-05] MEDS: TOPIRAMATE (TopAMAX) 100 MG TAB PO SCH ×2 (09:15→20:25)
[2021-09-05] MEDS: VITAMIN D 1,000 INTERNATIONAL UNITS TABLET PO SCH (09:16)
[2021-09-05] MEDS: CREON-24 CAPSULE PO SCH ×3 (09:16→17:52)
[2021-09-05] MEDS: FERROUS SULFATE 325MG TAB PO SCH (09:16)
[2021-09-05] MEDS: POTASSIUM CHLORIDE 10MEQ SR TABLET PO SCH ×2 (09:16→20:26)
[2021-09-05] MEDS: ARMODAFINIL 200 MG PO SCH (09:18)
[2021-09-05 14:00] VITALS: BP 109/64
[2021-09-05] MEDS: methylPREDNISolone 40MG 1ML VIAL IV SCH (17:52)
[2021-09-05] MEDS: levETIRAcetam 250MG TABLET (KEPPRA) PO SCH (20:25)
[2021-09-05] MEDS: ATORVASTATIN 20 MG TAB PO SCH (20:26)
[2021-09-05] MEDS: TOPIRAMATE (TopAMAX) 25 MG TAB PO SCH (20:26)
[2021-09-05 23:40] VITALS: BP 92/61
[2021-09-06] MEDS: MESALAMINE 250 MG CR CAP PO SCH ×3 (05:45→20:15)
[2021-09-06 06:00] VITALS: BP 111/61
[2021-09-06 06:35] LABS: HEMATOCRIT 31.4 % (36.0-47.0); HEMOGLOBIN 10.3 g/dl (12.0-15.5); MEAN CORPUSCULAR HEMOGLOBIN 30.1 pg (27.0-33.0); MEAN CORPUSCULAR HGB CONC 32.8 g/dl (32.0-36.5); MEAN CORPUSCULAR VOLUME 91.8 fl (80.0-96.0); PLATELET COUNT, AUTOMATED 321 10^3/uL (150-450); RED BLOOD COUNT 3.42 10^6/uL (4.00-5.40); WHITE BLOOD COUNT 8.6 10^3/uL (4.0-10.0)
[2021-09-06 07:14] LABS: BLOOD UREA NITROGEN 19 MG/DL (7-18); CALCIUM LEVEL 7.2 MG/DL (8.5-10.1); CARBON DIOXIDE LEVEL 23 MEQ/L (21-32); CHLORIDE LEVEL 116 MEQ/L (98-107); CREATININE FOR GFR 0.62 MG/DL (0.55-1.30); GLOMERULAR FILTRATION RATE > 60.0 (>51); GLUCOSE, FASTING 82 MG/DL (70-100); POTASSIUM SERUM 3.5 MEQ/L (3.5-5.1); SODIUM LEVEL 143 MEQ/L (136-145)
[2021-09-06 07:45] VITALS: BP 104/64
[2021-09-06] MEDS: CREON-24 CAPSULE PO SCH ×3 (08:29→18:43)
[2021-09-06] MEDS: FERROUS SULFATE 325MG TAB PO SCH (08:31)
[2021-09-06] MEDS: FOLIC ACID 1 MG TAB PO SCH (08:31)
[2021-09-06] MEDS: FLUoxetine 20MG CAP PO SCH (08:31)
[2021-09-06] MEDS: VITAMIN D 1,000 INTERNATIONAL UNITS TABLET PO SCH (08:32)
[2021-09-06] MEDS: ARMODAFINIL 200 MG PO SCH (09:51)
[2021-09-06] MEDS: POTASSIUM CHLORIDE 10MEQ SR TABLET PO SCH ×2 (09:53→20:14)
[2021-09-06] MEDS: predniSONE 20 MG TAB PO SCH (09:53)
[2021-09-06] MEDS: FAMOTIDINE 20 MG TAB PO SCH ×2 (09:53→20:14)
[2021-09-06] MEDS: PRAMIPEXOLE 0.25 MG TAB PO SCH ×2 (09:53→20:13)
[2021-09-06] MEDS: LACOSAMIDE 50 MG TAB (VIMPAT) PO SCH ×2 (09:54→20:14)
[2021-09-06] MEDS: TOPIRAMATE (TopAMAX) 100 MG TAB PO SCH ×2 (09:54→20:13)
[2021-09-06] MEDS: LACTOBACILLUS ACIDOPHILUS CAP (BACID) PO SCH ×2 (09:54→18:43)
[2021-09-06 13:40] VITALS: BP 100/66
[2021-09-06] MEDS: TOPIRAMATE (TopAMAX) 25 MG TAB PO SCH (20:13)
[2021-09-06] MEDS: ATORVASTATIN 20 MG TAB PO SCH (20:14)
[2021-09-06] MEDS: levETIRAcetam 250MG TABLET (KEPPRA) PO SCH (20:15)
[2021-09-06 21:20] VITALS: BP 96/60
[2021-09-07] MEDS: MESALAMINE 250 MG CR CAP PO SCH ×3 (05:13→20:24)
[2021-09-07 06:01] VITALS: BP 98/61
[2021-09-07 06:23] LABS: HEMATOCRIT 29.1 % (36.0-47.0); HEMOGLOBIN 9.3 g/dl (12.0-15.5); MEAN CORPUSCULAR HEMOGLOBIN 29.7 pg (27.0-33.0); PLATELET COUNT, AUTOMATED 341 10^3/uL (150-450); RED BLOOD COUNT 3.13 10^6/uL (4.00-5.40); WHITE BLOOD COUNT 10.1 10^3/uL (4.0-10.0)
[2021-09-07 06:48] LABS: BLOOD UREA NITROGEN 15 MG/DL (7-18); CALCIUM LEVEL 7.7 MG/DL (8.5-10.1); CARBON DIOXIDE LEVEL 21 MEQ/L (21-32); CHLORIDE LEVEL 117 MEQ/L (98-107); CREATININE FOR GFR 0.47 MG/DL (0.55-1.30); GLOMERULAR FILTRATION RATE > 60.0 (>51); GLUCOSE, FASTING 63 MG/DL (70-100); SODIUM LEVEL 144 MEQ/L (136-145)
[2021-09-07] MEDS: CREON-24 CAPSULE PO SCH ×3 (09:56→18:20)
[2021-09-07] MEDS: FLUoxetine 20MG CAP PO SCH (09:56)
[2021-09-07] MEDS: predniSONE 20 MG TAB PO SCH (09:57)
[2021-09-07] MEDS: VITAMIN D 1,000 INTERNATIONAL UNITS TABLET PO SCH (09:57)
[2021-09-07] MEDS: ARMODAFINIL 200 MG PO SCH (09:57)
[2021-09-07] MEDS: FAMOTIDINE 20 MG TAB PO SCH ×2 (09:57→20:23)
[2021-09-07] MEDS: LACOSAMIDE 50 MG TAB (VIMPAT) PO SCH ×2 (09:57→20:23)
[2021-09-07] MEDS: PRAMIPEXOLE 0.25 MG TAB PO SCH ×2 (09:58→20:24)
[2021-09-07] MEDS: FOLIC ACID 1 MG TAB PO SCH (09:58)
[2021-09-07] MEDS: LACTOBACILLUS ACIDOPHILUS CAP (BACID) PO SCH ×2 (09:58→18:20)
[2021-09-07] MEDS: POTASSIUM CHLORIDE 10MEQ SR TABLET PO SCH ×2 (09:58→20:23)
[2021-09-07] MEDS: TOPIRAMATE (TopAMAX) 100 MG TAB PO SCH ×2 (09:58→20:24)
[2021-09-07] MEDS: FERROUS SULFATE 325MG TAB PO SCH (09:58)
[2021-09-07 14:00] VITALS: BP 97/66
[2021-09-07 20:00] VITALS: BP 99/64
[2021-09-07] MEDS: levETIRAcetam 250MG TABLET (KEPPRA) PO SCH (20:24)
[2021-09-07] MEDS: ATORVASTATIN 20 MG TAB PO SCH (20:24)
[2021-09-07] MEDS: TOPIRAMATE (TopAMAX) 25 MG TAB PO SCH (20:24)
[2021-09-08] MEDS: MESALAMINE 250 MG CR CAP PO SCH ×3 (05:36→21:58)
[2021-09-08 06:00] VITALS: BP 113/70
[2021-09-08 06:37] LABS: HEMATOCRIT 33.9 % (36.0-47.0); HEMOGLOBIN 10.6 g/dl (12.0-15.5); MEAN CORPUSCULAR HEMOGLOBIN 29.4 pg (27.0-33.0); MEAN CORPUSCULAR HGB CONC 31.3 g/dl (32.0-36.5); MEAN CORPUSCULAR VOLUME 94.2 fl (80.0-96.0); PLATELET COUNT, AUTOMATED 369 10^3/uL (150-450); WHITE BLOOD COUNT 10.7 10^3/uL (4.0-10.0)
[2021-09-08 07:04] LABS: BLOOD UREA NITROGEN 13 MG/DL (7-18); CALCIUM LEVEL 7.6 MG/DL (8.5-10.1); CARBON DIOXIDE LEVEL 23 MEQ/L (21-32); CHLORIDE LEVEL 114 MEQ/L (98-107); CREATININE FOR GFR 0.62 MG/DL (0.55-1.30); GLOMERULAR FILTRATION RATE > 60.0 (>51); GLUCOSE, FASTING 82 MG/DL (70-100); POTASSIUM SERUM 4.1 MEQ/L (3.5-5.1); SODIUM LEVEL 142 MEQ/L (136-145)
[2021-09-08] MEDS: FAMOTIDINE 20 MG TAB PO SCH ×2 (08:24→21:59)
[2021-09-08] MEDS: FLUoxetine 20MG CAP PO SCH (08:24)
[2021-09-08] MEDS: LACTOBACILLUS ACIDOPHILUS CAP (BACID) PO SCH ×2 (08:25→17:18)
[2021-09-08] MEDS: POTASSIUM CHLORIDE 10MEQ SR TABLET PO SCH ×2 (08:25→21:59)
[2021-09-08] MEDS: predniSONE 20 MG TAB PO SCH (08:25)
[2021-09-08] MEDS: FOLIC ACID 1 MG TAB PO SCH (08:25)
[2021-09-08] MEDS: TOPIRAMATE (TopAMAX) 100 MG TAB PO SCH ×2 (08:25→21:59)
[2021-09-08] MEDS: VITAMIN D 1,000 INTERNATIONAL UNITS TABLET PO SCH (08:26)
[2021-09-08] MEDS: PRAMIPEXOLE 0.25 MG TAB PO SCH ×2 (08:26→21:58)
[2021-09-08] MEDS: FERROUS SULFATE 325MG TAB PO SCH (08:26)
[2021-09-08] MEDS: LACOSAMIDE 50 MG TAB (VIMPAT) PO SCH ×2 (08:26→21:58)
[2021-09-08] MEDS: CREON-24 CAPSULE PO SCH ×3 (08:27→17:18)
[2021-09-08] MEDS: CHOLESTYRAMINE 4 GM PWD PKT PO SCH ×4 (09:03→23:05)
[2021-09-08] MEDS: ARMODAFINIL 200 MG PO SCH (09:10)
[2021-09-08] MEDS: MEGESTROL 40 MG TAB PO SCH (13:52)
[2021-09-08 14:00] VITALS: BP 108/67
[2021-09-08] MEDS: ONDANSETRON 4MG ORAL DISINTEGRATING TAB SL PRN (14:32)
[2021-09-08 18:00] VITALS: BP 111/69
[2021-09-08] MEDS: ATORVASTATIN 20 MG TAB PO SCH (21:59)
[2021-09-08] MEDS: TOPIRAMATE (TopAMAX) 25 MG TAB PO SCH (21:59)
[2021-09-08] MEDS: levETIRAcetam 250MG TABLET (KEPPRA) PO SCH (21:59)
[2021-09-09] MEDS: MESALAMINE 250 MG CR CAP PO SCH ×2 (05:53→14:42)
[2021-09-09 06:00] VITALS: BP 94/52
[2021-09-09 06:06] LABS: HEMATOCRIT 29.2 % (36.0-47.0); HEMOGLOBIN 8.9 g/dl (12.0-15.5); MEAN CORPUSCULAR HEMOGLOBIN 28.8 pg (27.0-33.0); MEAN CORPUSCULAR HGB CONC 30.5 g/dl (32.0-36.5); MEAN CORPUSCULAR VOLUME 94.5 fl (80.0-96.0); PLATELET COUNT, AUTOMATED 311 10^3/uL (150-450); RED BLOOD COUNT 3.09 10^6/uL (4.00-5.40); WHITE BLOOD COUNT 9.3 10^3/uL (4.0-10.0)
[2021-09-09 06:26] LABS: BLOOD UREA NITROGEN 23 MG/DL (7-18); CALCIUM LEVEL 7.8 MG/DL (8.5-10.1); CARBON DIOXIDE LEVEL 20 MEQ/L (21-32); CHLORIDE LEVEL 119 MEQ/L (98-107); CREATININE FOR GFR 0.44 MG/DL (0.55-1.30); GLOMERULAR FILTRATION RATE > 60.0 (>51); GLUCOSE, FASTING 86 MG/DL (70-100); POTASSIUM SERUM 3.9 MEQ/L (3.5-5.1); SODIUM LEVEL 145 MEQ/L (136-145)
[2021-09-09] MEDS: LACTOBACILLUS ACIDOPHILUS CAP (BACID) PO SCH (07:54)
[2021-09-09] MEDS: FOLIC ACID 1 MG TAB PO SCH (07:55)
[2021-09-09] MEDS: CREON-24 CAPSULE PO SCH ×2 (07:55→12:19)
[2021-09-09] MEDS: FERROUS SULFATE 325MG TAB PO SCH (07:55)
[2021-09-09] MEDS: predniSONE 20 MG TAB PO SCH (07:55)
[2021-09-09] MEDS: POTASSIUM CHLORIDE 10MEQ SR TABLET PO SCH (07:56)
[2021-09-09] MEDS: MEGESTROL 40 MG TAB PO SCH (07:56)
[2021-09-09] MEDS: VITAMIN D 1,000 INTERNATIONAL UNITS TABLET PO SCH (07:57)
[2021-09-09] MEDS: PRAMIPEXOLE 0.25 MG TAB PO SCH (07:57)
[2021-09-09] MEDS: TOPIRAMATE (TopAMAX) 100 MG TAB PO SCH (07:57)
[2021-09-09] MEDS: FAMOTIDINE 20 MG TAB PO SCH (07:58)
[2021-09-09] MEDS: FLUoxetine 20MG CAP PO SCH (07:58)
[2021-09-09] MEDS: LACOSAMIDE 50 MG TAB (VIMPAT) PO SCH (07:58)
[2021-09-09] MEDS: ARMODAFINIL 200 MG PO SCH (08:05)
[2021-09-09] MEDS: CHOLESTYRAMINE 4 GM PWD PKT PO SCH ×3 (09:45→17:12)
[2021-09-09] MEDS: ONDANSETRON 4MG ORAL DISINTEGRATING TAB SL PRN (09:47)
[2021-09-09 14:00] VITALS: BP 103/71
[2021-09-09] MEDS ORDERED: CREO24CA PO ×2 (16:22)
[2021-09-09] MEDS ORDERED: POTA-136 PO ×2 (16:22→16:31)
[2021-09-09] MEDS ORDERED: FERR1TAB8 PO (16:22)
[2021-09-09] MEDS ORDERED: MESA24CASA PO (16:22)
[2021-09-09] MEDS ORDERED: ACET1TAB55 PO (16:22)
[2021-09-09] MEDS ORDERED: PERCOCET PO (16:22)
[2021-09-09] MEDS ORDERED: ONDA4TAB6 SL (16:22)
[2021-09-09] MEDS ORDERED: MEGE40TA PO (16:22)
[2021-09-09] MEDS ORDERED: CHOL4PW PO (16:22)
[2021-09-09] MEDS ORDERED: PRED5PAK2 PO (16:22)
[2021-09-09] MEDS ORDERED: RISATAB3 PO (16:22)
== END 2021-09-09 18:02 | disposition home or self-care (01) | DRG 248 ==
LOC: M ED 17:29 → M ED INP 08-12 02:23 → ENRESERV 08-12 11:22 → M MS4PR 08-12 14:25 → M MSPAV 08-12 17:10 → UNDODISIN 09-09 16:37
PROVIDERS: ADMIT Internal Medicine; ATTEND Family Medicine
PROC: 0DBH7ZX Excision of Cecum, Via Natural or Artificial Opening, Diagnostic (ICD-10-PCS; 2021-08-26)
PROC: 3E0G8GC Introduction of Other Therapeutic Substance into Upper GI, Via Natural or Artificial Opening Endoscopic (ICD-10-PCS; 2021-08-26)
PROC: 3E0H8GC Introduction of Other Therapeutic Substance into Lower GI, Via Natural or Artificial Opening Endoscopic (ICD-10-PCS; principal; 2021-08-26 14:15)
PROC: 0DJ08ZZ Inspection of Upper Intestinal Tract, Via Natural or Artificial Opening Endoscopic (ICD-10-PCS; 2021-09-04)
DX: A04.72 Enterocolitis due to Clostridium difficile, not specified as recurrent (principal); R64 Cachexia; E43 Unspecified severe protein-calorie malnutrition; D62 Acute posthemorrhagic anemia; E88.09 Other disorders of plasma-protein metabolism, not elsewhere classified; E83.42 Hypomagnesemia; E16.2 Hypoglycemia, unspecified; E87.6 Hypokalemia; F10.20 Alcohol dependence, uncomplicated; G25.81 Restless legs syndrome; G40.909 Epilepsy, unspecified, not intractable, without status epilepticus; K21.9 Gastro-esophageal reflux disease without esophagitis; K92.2 Gastrointestinal hemorrhage, unspecified; Z98.84 Bariatric surgery status; F32.A Depression, unspecified; Z79.899 Other long term (current) drug therapy; Z88.8 Allergy status to other drugs, medicaments and biological substances; Z79.52 Long term (current) use of systemic steroids; Z68.1 Body mass index [BMI] 19.9 or less, adult; A60.09 Herpesviral infection of other urogenital tract; E78.5 Hyperlipidemia, unspecified; F17.210 Nicotine dependence, cigarettes, uncomplicated; D12.0 Benign neoplasm of cecum; K62.1 Rectal polyp

== ENCOUNTER 2021-09-10 16:07 | Outpatient (CLI) | payer OTHER ==
[~2021-09-10] VITALS: Ht 157.5 cm; Wt 37.3 kg
[~2021-09-10 16:07] MED LIST changes: +ACET1TAB55 PO; +ATOR80TA59; +ATOR80TA59 PO; +CHOL4PW PO; +CREO24CA PO; +ERGO500029 PO; +FAMO20TA PO; +FAMO20TA5; +FERR1TAB8 PO; +FLUO20CA22 PO; +FURO20TA2; +MEGE40TA PO; +MESA24CASA PO; +MULT400T10 PO; +NALT50TA4; +NALT50TA4 PO; +NYST50SS; +NYST50SS SS; +ONDA4TAB6 SL; +PANT-23 PO; +PANT40TA29; +PERCOCET PO; +POTA-136 PO; +POTA1TAB14; +POTA1TAB23 PO; +PRED10TA2; +PRED10TA2 PO; +PRED20TA; +PRED5PAK2 PO; +RISATAB3 PO; +TOPI50TA9 PO; +UNIS25TA3 PO; +VITA100093 PO
[2021-09-10 16:10] VITALS: BP_SYST 114; BP_SYST 149; BP_DIAS 59; BP_DIAS 78
[2021-09-10] MEDS ORDERED: VEDOLIZUMAB 300 MG in NS 250 ML IV ONE (17:30)
[2021-09-10 18:30] VITALS: BP 118/68
== END 2021-09-10 18:30 | disposition home or self-care (01) ==
LOC: M INFU 16:07
PROVIDERS: ATTEND Internal Medicine Gastroenterology
DX: K51.90 Ulcerative colitis, unspecified, without complications (principal); Z88.1 Allergy status to other antibiotic agents; Z88.8 Allergy status to other drugs, medicaments and biological substances
CPT/HCPCS: 96365; J3380

== ENCOUNTER 2021-09-12 15:45 | Outpatient (CLI) | payer OTHER ==
[~2021-09-12] VITALS: Ht 157.5 cm; Wt 37.3 kg
[2021-09-12 15:50] VITALS: BP 105/59
[2021-09-12] MEDS ORDERED: BEZLOTOXUMAB 500 MG in NS 100 ML IV ONE (16:30)
[2021-09-12 17:45] VITALS: BP 114/68
== END 2021-09-12 17:45 | disposition home or self-care (01) ==
LOC: M INFU 15:45
PROVIDERS: ATTEND Internal Medicine Infectious Disease
DX: A04.71 Enterocolitis due to Clostridium difficile, recurrent (principal); Z88.1 Allergy status to other antibiotic agents; Z88.8 Allergy status to other drugs, medicaments and biological substances
CPT/HCPCS: 96365; J0565

== ENCOUNTER 2021-09-24 15:06 | Outpatient (CLI) | payer OTHER ==
[~2021-09-24 15:06] MED LIST changes: +VEDOLIZUMAB 300 MG in NS 250 ML IV ONE
[2021-09-24 15:10] VITALS: BP 125/60
[2021-09-24 16:26] VITALS: BP 115/55
== END 2021-09-24 16:30 | disposition home or self-care (01) ==
LOC: M INFU 15:06
PROVIDERS: ATTEND Internal Medicine Gastroenterology
DX: K51.90 Ulcerative colitis, unspecified, without complications (principal)
CPT/HCPCS: 96365; J3380

== ENCOUNTER 2021-11-04 14:00 | Outpatient (CLI) | payer OTHER ==
[~2021-11-04] VITALS: Ht 157.5 cm; Wt 45.0 kg
[~2021-11-04 14:00] MED LIST changes: +ALBUTEROL SULFATE 2.5 MG/0.5 ML INH NEB SOLN INH PRN; +EPINEPHrine INJ 1 MG/ML 1ML AMP IM PRN; +NS 1,000 ML IV ONE; +NS 1,000 ML IV SCH; +diphenhydrAMINE 50MG/ML VIAL (J1200) IV PRN; +methylPREDNISolone 125MG 2ML VIAL IV PRN
[2021-11-04 14:10] VITALS: BP 152/74
[2021-11-04 14:25] VITALS: BP 152/74
[2021-11-04 15:07] VITALS: BP 122/68
== END 2021-11-04 15:10 | disposition home or self-care (01) ==
LOC: M INFU 14:00
PROVIDERS: ATTEND Internal Medicine Gastroenterology
DX: K51.90 Ulcerative colitis, unspecified, without complications (principal); Z88.1 Allergy status to other antibiotic agents
CPT/HCPCS: 96365; J3380

== ENCOUNTER 2021-12-30 15:00 | Outpatient (CLI) | payer OTHER ==
[~2021-12-30 15:00] MED LIST changes: -ALBUTEROL SULFATE 2.5 MG/0.5 ML INH NEB SOLN INH PRN; -EPINEPHrine INJ 1 MG/ML 1ML AMP IM PRN; -MEGE40TA PO; +MEGE40TA3 PO; -NS 1,000 ML IV ONE; -NS 1,000 ML IV SCH; -diphenhydrAMINE 50MG/ML VIAL (J1200) IV PRN; -methylPREDNISolone 125MG 2ML VIAL IV PRN
[2021-12-30 15:07] VITALS: BP 118/61
[2021-12-30 15:57] VITALS: BP 105/57
== END 2021-12-30 16:05 | disposition home or self-care (01) ==
LOC: M INFU 15:00
PROVIDERS: ATTEND Internal Medicine Gastroenterology
DX: K51.90 Ulcerative colitis, unspecified, without complications (principal); Z88.1 Allergy status to other antibiotic agents; Z88.9 Allergy status to unspecified drugs, medicaments and biological substances
CPT/HCPCS: 96365; J3380

== ENCOUNTER → 2022-03-07 | Outpatient (CLI) | payer OTHER ==
[~2022-03-07] MED LIST changes: -VEDOLIZUMAB 300 MG in NS 250 ML IV ONE
[2022-03-07 11:59] LABS: BASO % 0.1 % (0.0-1.0); HEMATOCRIT 25.6 % (36.0-47.0); LYMPH # 0.8 10^3/uL (1.5-5.0); LYMPH % 9.1 % (24.0-44.0); MEAN CORPUSCULAR HEMOGLOBIN 30.3 pg (27.0-33.0); MEAN CORPUSCULAR HGB CONC 31.3 g/dl (32.0-36.5); MONO # 0.1 10^3/uL (0.0-0.8); MONO % 1.6 % (2.0-8.0); NEUTROPHILS # 7.7 10^3/uL (1.5-8.5); NEUTROPHILS % 88.6 % (36.0-66.0); PLATELET COUNT, AUTOMATED 393 10^3/uL (150-450); RED BLOOD COUNT 2.64 10^6/uL (4.00-5.40); WHITE BLOOD COUNT 8.7 10^3/uL (4.0-10.0)
[2022-03-07 12:28] LABS: ERYTHROCYTE SEDIMENTATION RATE 60 mm/hr (0-30)
[2022-03-07 12:35] LABS: ALT/SGPT 22 U/L (12-78); BILIRUBIN,TOTAL < 0.1 MG/DL (0.2-1.0); BLOOD UREA NITROGEN 29 MG/DL (7-18); CALCIUM LEVEL 7.9 MG/DL (8.5-10.1); CARBON DIOXIDE LEVEL 24 MEQ/L (21-32); CHLORIDE LEVEL 113 MEQ/L (98-107); CREATININE FOR GFR 0.89 MG/DL (0.55-1.30); GLOMERULAR FILTRATION RATE > 60.0 (>51); GLUCOSE, FASTING 177 MG/DL (70-100); SODIUM LEVEL 142 MEQ/L (136-145); TOTAL PROTEIN 5.1 GM/DL (6.4-8.2)
== END ==
LOC: M LAB 11:05
PROVIDERS: ATTEND Internal Medicine Gastroenterology
DX: K51.019 Ulcerative (chronic) pancolitis with unspecified complications (principal)